=== PATIENT | female | born 1960 | race Caucasian/White ===

== ENCOUNTER → 2017-02-14 | Outpatient (CLI) | payer MEDICAID ==
[~2017-02-14] MED LIST: ACET-62 PO; ASPI81TA2 GT; CARB15DR94 EACH EAR; FERR500P12; MAGN400T6 PO; MAGN800O; TUBE5VIA
--- NOTE | 2017-02-14 19:17 | ECHOF ---
DATE OF SERVICE 02/14/[address] Makenzie Hill INDICATIONS Prechemotherapy. Baseline assessment of LV ejection fraction in a patient who is anticipating potentially cardiotoxic chemotherapy. TECHNICAL QUALITY Technically good 2D, M-mode, Doppler echocardiographic images were submitted for interpretation. FINDINGS 1. CARDIAC CHAMBERS: Left ventricle appears prominent with evidence of apical akinesis and no demonstrable clots. All other cardiac chambers are normal in size including the left atrium. Aortic root diameter is normal. 2. LEFT VENTRICLE: Left ventricular analysis reveals wall thickness is normal at 7 mm. Wall motion analysis shows apical akinesis. No demonstrable clots. The contractility of the lateral wall appears normal. Contractility of the anterior wall appears preserved. The septum, particularly the anterior septum, appears echogenic and thinned out with some dyskinesis present in the apical portion consistent with an aneurysm. No demonstrable clots that I see. The inferior septum appears to contract adequately, but the inferior wall appears markedly hypokinetic to akinetic as seen on the apical two-chamber view. LV systolic dysfunction due to ischemic cardiomyopathy of qincruxi-zo-wceiew degree. Ejection fraction is estimated at about 35%, which correlates with the measurements obtained. 3. VALVES: The aortic, mitral, and tricuspid valve structure and motion appear normal for age with normal valve excursion. 4. Doppler shows trace regurgitation involving all four valves. None of hemodynamic significance. Normal flow velocity throughout. 5. Only minimal pericardial effusion is present. 6. No evidence of intracardiac masses, thrombi, vegetations, or shunts. IMPRESSION 1. Findings of moderately severe ischemic cardiomyopathy. Ejection fraction of about 35%, with evidence of multivessel coronary artery disease and prior infarction. 2. No significant valvular dysfunction. 3. Systolic PA pressure estimated at 36 mmHg, mildly increased. 4. Central venous pressure is mildly increased. Results were called in to Dr. Hill. [facility]
== END ==
LOC: IMA 14:10
PROVIDERS: ATTEND Internal Medicine Medical Oncology
DX: C13.8 Malignant neoplasm of overlapping sites of hypopharynx (principal); C01 Malignant neoplasm of base of tongue; I25.5 Ischemic cardiomyopathy; I25.10 Atherosclerotic heart disease of native coronary artery without angina pectoris
CPT/HCPCS: 93306

== ENCOUNTER → 2017-02-28 | Outpatient (CLI) | payer MEDICAID ==
[2017-02-28 10:30] VITALS: O2SAT 100
== END ==
LOC: RC 10:35
PROVIDERS: ATTEND Internal Medicine Medical Oncology
DX: C01 Malignant neoplasm of base of tongue (principal); Z93.0 Tracheostomy status
CPT/HCPCS: 31720

== ENCOUNTER 2017-06-10 12:16 | Observation (INO) ==
[2017-06-10] MEDS: ACETAMINOPHEN 500 MG TABLET GT SCH ×2 (13:33→21:13)
[2017-06-10] MEDS: GUAIFENESIN 200mg/10ml ORAL LIQUID GT SCH ×3 (13:34→21:12)
--- NOTE | 2017-06-10 14:12 | History & Physical Report ---
<Ida Hurst - Last Filed: 06/10/17 14:07> History of Present Illness Date: 06/10/17 Chief complaint: "I'm ready for my trach to come out" HPI: "Gus Moss is a 56 year old woman with a complicated history. She is being admitted for monitoring sats while her trach is capped. If all goes well, and Dr. Wood will decannulate the trach tomorrow. In late 2015, she was diagnosed with locally advanced stage IV oropharyngeal cancer, and received chemotherapy and radiation therapy per Dr. Hill. A tracheostomy and PEG tube were placed in October 2016. After some early complications with tube feedings , including emesis and requirement of IV fluids, her symptoms improved and she was tolerating feedings. Also since this time, she fell and fractured her right hip in Dec, 2016. She underwent surgical repair, from which she has recovered well. She has occasional residual right thigh pain. She states that she very rarely has to use a walker anymore. Regarding her oropharyngeal cancer, repeat imaging/scan has indicated remission. She is due for a PET scan in about 1 month. In addition, she states she has an upcoming swallow study next week to determine whether or not they can remove the PEG tube. She denies any other symptoms such as fevers or chills, cough or congestion, abdominal pain, nausea, vomiting, difficulty breathing, weakness or dizziness, urinary issues, or leg swelling. Review of Systems - Constitutional Constitutional: Present: weight gain (few pounds). Absent: fever(s), headache(s ) - EENMT Eyes: Absent: change in vision Balance: Absent: vertigo Nose: Absent: obstruction Mouth/Throat: Present: changes in swallowing. Absent: sore throat, change in voice - Cardiovascular Cardiovascular: Absent: chest pain, dyspnea on exertion, edema Vascular: Absent: pedal edema, unilateral swelling - Respiratory Respiratory: Present: cough (occasional). Absent: dyspnea - Gastrointestinal Gastrointestinal: Present: as per HPI. Absent: abdominal pain - Musculoskeletal Musculoskeletal: Present: other (left hip thigh pain occasionally). Absent: joint swelling, limited range of motion - Neurological Neurological: Absent: confusion, dizziness, loss of vision, numbness - Psychiatric Psychiatric: Absent: abnormal sleep pattern, anxiety - Allergic/Immunologic Allergic/Immunologic: Present: other (on ASA) PFSH Coronary artery disease with past stent 1. Stage FANNIE oropharyngeal cancer extending to the base of the tongue (2016). Treated with cis-[place] and radiation therapy. Anemia. Previously diagnosed with depression and treated with Zoloft - no longer taking Surgical History: Tracheostomy, PEG, Port-A-Cath. Surgery for colonic perforation. Hysterectomy. Bilateral tubal ligation. Ear tubes. Bilateral cataracts Family History: Family history of malignancy affecting several uncles - leukemia and lung cancers. Patient denies significant illness affecting parents. - Social History Smoking status: Former smoker Substance use type: does not use Alcohol intake frequency: does not drink Housing: [facility] (hopes to be able to live at home soon.) [place] [facility] Social history: Primary care physician is Dr. Patel. Oncologist is Dr. Hill. Orthopod is Dr. Lester. Medications Home Medications Medication Instructions Recorded Confirmed Type RX: Acetaminophen 1 tab GT Q6H #60 tab 11/21/16 06/10/17 History RX: Magnesium Hydroxide [Milk of 2,400 mg GT Q12H PRN #0 01/05/17 06/10/17 History Magnesia] Carvedilol [Coreg] 1 tab GT BID 06/10/17 06/10/17 History Docusate Sodium 20 mg GT BID 06/10/17 06/10/17 History Hydrocodone/APAP 5/325 [[place] 1 - 2 tab GT Q4H PRN MDD 3000MG 06/10/17 06/10/17 History 5/325] Lisinopril [Prinivil] 2.5 mg GT DAILY 06/10/17 06/10/17 History Loperamide [Imodium] 2 tab GT PRN PRN MDD 4 TAB 06/10/17 06/10/17 History Melatonin/Pyridoxine HCl (B6) 1 tab GT HS 06/10/17 06/10/17 History [Melatonin 3 mg Tablet] Nystatin Oral Liq. [Mycostatin] 10 ml PO QID 06/10/17 06/10/17 History Ondansetron HCl [Zofran] 4 mg GT Q8H PRN 06/10/17 06/10/17 History RX: Ferrous Sulfate 325 mg GT DAILY 06/10/17 06/10/17 History RX: Magnesium Oxide 400 mg GT DAILY 07/30/17 07/30/17 History guaiFENesin [Guaifenesin] 600 mg GT QID 06/10/17 06/10/17 History Allergies Allergy/AdvReac Type Severity Reaction Status Date / Time NKDA Allergy Unknown Uncoded 06/10/17 12:59 Exam Vital Signs: Temperature 97.5 F 06/10/17 12:57 Pulse Rate 70 06/10/17 12:57 Respiratory Rate 20 06/10/17 12:57 Blood Pressure 95/63 06/10/17 12:57 Pulse Oximetry 98 06/10/17 12:57 Oxygen Delivery Method Room Air Height: 1.65 m Weight: 52 kg Body Mass Index: 19.1 - Constitutional Present: no acute distress, thin - Routine HEENT Exam Eye: Present: PERRL. Absent: conjunctival icterus ENT: Present: mucous membranes dry, oropharynx clear - Routine Neck Exam Present: supple. Absent: lymphadenopathy, tenderness - Routine Respiratory Exam Present: CTA bilaterally. Absent: dyspnea - Routine Cardiovascular Exam Present: RRR, S1, S2 - Routine Abdominal Exam Present: soft, normoactive bowel sounds, non distended, non tender Comments: PEG tube in place - Routine Extremities Exam Present: no edema, pulses intact, normal capillary refill. Absent: calf tenderness - Routine Skin Exam Present: intact, dry, warm - Routine Neurological Exam Present: alert, oriented X3, CN II-XII intact - Routine Psychiatric Exam Present: normal affect, normal thought process Assessment and Plan (1) Tracheostomy in place Current visit: Yes Status: Chronic DVT Prophylaxis: SCD's Resuscitation Status: Full Code Assessment and Plan: Assessment Tracheostomy, possibly no longer necessary. Stage IV oropharyngeal cancer, in remission, per patient's DPHernan KIDD Dysphagia with PEG tube feedings. Coronary artery disease. Anemia. Plan Admit under the medical team. Will consult Dr. Wood. Monitor pulse ox and telemetry overnight while trach is capped. If sats remain stable, trach may be decannulated Patient has an appointment with Dr. Wood tomorrow at 1400. Conversely, Dr. Wood may be able to remove it at bedside. Check screening labs, CBC, BMP, mg. Continue home medications, holding aspirin temporarily. PCP - Dr. Patel. Code status - Full code. - Time spent with patient 25 - 35 minutes Sepsis Assessment - Evaluation Sepsis screening result: No Definite Risk Hospital Course Summary Disclaimer: The visit summary below is not to be considered part of the above Progress Note. <Ingris Tamez M - Last Filed: 06/10/17 15:00> History of Present Illness Date: 06/10/17 [facility] Patient Stated Medical History Cataracts Yes: bilateral removed Dysphagia Yes: with cancer Hearing Loss Yes: tube placed in left ear Myocardial Infarction Yes Chemotherapy Yes Other Yes: radiation Exam Vital Signs: Temperature 97.5 F 06/10/17 12:57 Pulse Rate 70 06/10/17 12:57 Respiratory Rate 20 06/10/17 12:57 Blood Pressure 95/63 06/10/17 12:57 Pulse Oximetry 98 06/10/17 12:57 Oxygen Delivery Method Room Air Height: 1.65 m Weight: 52 kg Assessment and Plan Assessment and Plan: Patient was seen and examined independently. I agree with the note above as a representation of our plan. Doing very well despite her recent medical challenges. Port accessed for lab draw and any IV therapies needed. Will monitor with trach capped tonight and defer to Dr. Wood for next steps in the morning. Hospital Course Summary Disclaimer: The visit summary below is not to be considered part of the above Progress Note.
[2017-06-10] MEDS ORDERED: HYDROCODONE/APAP 5mg/325mg TABLET GT PRN (14:43)
[2017-06-10] MEDS ORDERED: ONDANSETRON 4 MG TABLET GT PRN (14:43)
[2017-06-10] MEDS: NYSTATIN 500,000 units/5 ml ORAL LIQUID PO SCH ×2 (16:35→21:02)
[2017-06-10] MEDS: DOCUSATE 100mg/10ml ORAL LIQUID GT SCH (21:02)
[2017-06-10] MEDS: CARVEDILOL 3.125 MG TABLET GT SCH (21:13)
[2017-06-10] MEDS ORDERED: MELATONIN 1 MG TABLET GT SCH (22:00)
[2017-06-11] MEDS: ACETAMINOPHEN 500 MG TABLET GT SCH ×3 (01:53→13:13)
[2017-06-11 07:53] VITALS: BP 89/63; TEMP 98.4
[2017-06-11 08:55] VITALS: BMI 19.3
[2017-06-11] MEDS ORDERED: LISINOPRIL 2.5 MG TABLET GT SCH (09:00)
[2017-06-11] MEDS ORDERED: FERROUS SULFATE 220 MG/5 ML ORAL LIQUID GT SCH (09:00)
[2017-06-11] MEDS ORDERED: MAGNESIUM OXIDE 400 MG TABLET GT SCH (09:00)
[2017-06-11 09:50] VITALS: RESP 12; O2SAT 96
[2017-06-11] MEDS: GUAIFENESIN 200mg/10ml ORAL LIQUID GT SCH ×2 (10:02→13:13)
[2017-06-11] MEDS: DOCUSATE 100mg/10ml ORAL LIQUID GT SCH (10:03)
[2017-06-11] MEDS: NYSTATIN 500,000 units/5 ml ORAL LIQUID PO SCH ×2 (10:06→13:21)
[2017-06-11] MEDS: CARVEDILOL 3.125 MG TABLET GT SCH (10:07)
--- NOTE | 2017-06-11 11:33 | Discharge Summary ---
<ArisOscarIda D - Last Filed: 06/11/17 11:30> Discharge Information Date of admission: 06/10/17 12:16 Anticipated date of discharge: 06/11/17 Attending Physician: Cassidy Kellogg MD Primary care physician: Lenny Patle DO Consults: Consulting Provider: Guanako Wood - Procedures Procedures: Tracheostomy was decannulated by Dr. Wood on 06/11/17. She tolerated this well. - Laboratory Labs: 06/10/17 15:12 06/10/17 15:12 History of Present Illness HPI: "Gus Moss is a 56 year old woman with a complicated history. She is being admitted for monitoring sats while her trach is capped. If all goes well, and Dr. Wood will decannulate the trach tomorrow. In late 2015, she was diagnosed with locally advanced stage IV oropharyngeal cancer, and received chemotherapy and radiation therapy per Dr. Hill. A tracheostomy and PEG tube were placed in October 2016. After some early complications with tube feedings , including emesis and requirement of IV fluids, her symptoms improved and she was tolerating feedings. Also since this time, she fell and fractured her right hip in Dec, 2016. She underwent surgical repair, from which she has recovered well. She has occasional residual right thigh pain. She states that she very rarely has to use a walker anymore. Regarding her oropharyngeal cancer, repeat imaging/scan has indicated remission. She is due for a PET scan in about 1 month. In addition, she states she has an upcoming swallow study next week to determine whether or not they can remove the PEG tube. She denies any other symptoms such as fevers or chills, cough or congestion, abdominal pain, nausea, vomiting, difficulty breathing, weakness or dizziness, urinary issues, or leg swelling. Objective Vital signs: Temperature 98.4 F 06/11/17 07:51 Pulse Rate 75 06/11/17 09:46 Respiratory Rate 12 06/11/17 09:46 Blood Pressure 89/63 06/11/17 07:51 Pulse Oximetry 96 06/11/17 09:46 Oxygen Delivery Method Room Air Height: 1.65 m Weight: 52.617 kg Body Mass Index: 19.3 - Constitutional Present: no acute distress, thin - Routine HEENT Exam Head: Present: normocephalic Eye: Absent: conjunctival icterus ENT: Present: mucous membranes moist, oropharynx clear Comments: tracheostomy has been discontinued and there is an occlusive gauze dressing overlying the site. There is mild erythema to her anterior neck. There is no drainage. - Routine Respiratory Exam Present: CTA bilaterally - Routine Cardiovascular Exam Present: RRR, S1, S2, murmur (systolic) - Routine Abdominal Exam Present: soft, normoactive bowel sounds, non distended, non tender, ostomy (PEG) - Routine Extremities Exam Present: no edema, pulses intact, normal capillary refill - Routine Back/Spine/Pelvis Exam Back/Spine: Present: full ROM - Routine Musculoskeletal Exam Musculoskeletal: Present: moving extremities well. Absent: limited range of motion - Routine Skin Exam Present: intact, erythema (anterior neck), dry, warm - Routine Neurological Exam Present: alert, oriented X3, CN II-XII intact, moving all extremities - Routine Psychiatric Exam Present: normal affect, normal thought process Hospital Course This is a general summary of the patient's hospital course. For more details refer to the complete medical record. Hospital course: "Gus Moss was admitted on 06/11/17 for overnight oximetry with plans for tracheostomy decannulation on 06/11/17. Oxygen saturations remained stable overnight. Her telemetry rhythm showed sinus. Dr. Wood decannulated the tracheostomy as planned on 06/11/17 without incident. She was instructed to minimize talking and to hold pressure over the site if she does talk. He wrote wound care instructions for nursing staff, and most importantly is to keep the stoma covered with an occlusive dressing [change as needed]. A f/u appointment has been set for next Sunday. HTN & CAD: Since her BP has been persistently low we added hold parameters for both Coreg and Lisinopril (Hold if SBP <110 and HR <60). Recommend f/u with Dr. Patel in this regard. Anemia: admission labs were overall stable, showing chronic stable [and improved ] normocytic anemia. Continue ferrous sulfate. Discharge Plan - Med Rec/Dispo Referrals/Follow Up: Lenny Patel DO [Family Provider] - 1 Week (F/U on asymptomatic hypotension ) Guanako oWod MD [Physician] - 1 Week (Follow up on June 19.) Additional Instructions: Hold Lisinopril if SBP <110 mmHg Hold Coreg if SBP <110 mmHg or if HR <60 Prescriptions: Continue Magnesium Hydroxide [Milk of Magnesia] 2,400 mg GT Q12H PRN #0 PRN Reason: Constipation Ondansetron HCl [Zofran] 4 mg GT Q8H PRN PRN Reason: Nausea Melatonin/Pyridoxine HCl (B6) [Melatonin 3 mg Tablet] 1 tab GT HS guaiFENesin [Guaifenesin] 600 mg GT QID Docusate Sodium 20 mg GT BID Magnesium Oxide 400 mg GT DAILY Ferrous Sulfate 325 mg GT DAILY Loperamide [Imodium] 2 tab GT PRN PRN MDD 4 TAB PRN Reason: Diarrhea Carvedilol [Coreg] 1 tab GT BID #0 Hydrocodone/APAP 5/325 [[place] 5/325] 1 - 2 tab GT Q4H PRN #15 tablet MDD 3000MG PRN Reason: Pain Lisinopril [Prinivil] 2.5 mg GT DAILY #0 Acetaminophen 1 tab GT Q6H #60 tab Aspirin 81 mg GT DAILY 30 Days Nystatin Oral Liq. [Mycostatin] 10 ml PO QID - Disposition 04 To [facility] Home/Facility <Cassidy Kellogg Jose Angel - Last Filed: 06/11/17 13:15> Discharge Information Date of admission: 06/10/17 12:16 Attending Physician: Michael Alfaro MD Primary care physician: MD Lenny Dumont DO Consults: 06/10/17 13:48 Physician Consult [CONS] Routine Consulting Provider: Guanako Wood Reason For Exam: TRACH STUDY Ordering Provider has Notified Escalator Attendant: Yes - Discharge Diagnosis Discharge Diagnosis: History stage IV oropharyngeal cancer Tracheostomy-decannulated 06/11/17 - Laboratory Labs: 06/10/17 15:12 06/10/17 15:12 Objective Vital signs: Temperature 98.4 F 06/11/17 07:51 Pulse Rate 59 L 06/11/17 11:36 Respiratory Rate 12 06/11/17 09:46 Blood Pressure 89/63 06/11/17 07:51 Pulse Oximetry 96 06/11/17 09:46 Oxygen Delivery Method Room Air Hospital Course This is a general summary of the patient's hospital course. For more details refer to the complete medical record. Hospital course: I have independently evaluated and examined this patient. I reviewed the chart, the patient's history, and the [employer]PA's documented findings as above. We discussed and formulated the assessment and plan as above with additions as below: Overnight oximetry was monitored after tracheostomy was capped to determine if Betty could be safely decannulated as planned. Oxygenation remained stable and she had no difficulty breathing per her report. She describes minor cough. She' s had no palpitations and was delighted to hear that Dr. Wood plans to remove the trach at bedside late this morning. Tracheostomy was subsequently decannulated uneventfully. The patient is alert and cooperative. Respirations are nonlabored with good airflow. Stable for return to [facility] with follow-up as noted.
[2017-06-11 11:37] VITALS: PULSE 59
--- NOTE | 2017-06-11 11:51 | Extended Care Facility Orders ---
Admission Orders Admit to:: [facility] Allergies/Adverse Reactions: Allergies NKDA Allergy (Unknown, Uncoded 06/10/17 12:59) Admitting Diagnosis: Trach Study Admitting Physician: Cassidy Kellogg MD Attending Physician: Cassidy Kellogg MD Code Status: Full Code Anticiapted Length of Stay: 30 days or less Rehab Potential: good Rehab Prognosis: good Diet: NPO Diet [DIET] Resume tube feeds May use Facility Protocol or Standing Orders: Yes May have flu vaccine: Yes Longterm Certification: I certify that SNF services are required to be given on an Inpatient basis because of the patient's need for [facility] care on a continuing basis for the condition(s) for which she received inpatient hospital services prior to her transfer to the SNF. SNF inpatient care is necessary for the following reasons Indication for Longterm: Not Applicable - Additional Information In Event of Arrest: Start CPR,call 911,send patient to the ER Resident is Aware of Diagnosis: Yes Referrals: Guanako Wood MD [Physician] - 1 Week (Follow up on June 19.) Lenny Patel DO [Family Provider] - 1 Week (F/U on asymptomatic hypotension ) Additional Orders: Keep occlusive dressing in place over trach stoma. Change as needed. See Dr. Wood's orders. Minimize talking, and when she does talk make sure she applies pressure to the stoma. Hold Lisinopril if SBP <110 mmHg and hold Coreg if SBP <110 mmHg or if HR <60 bpm. F/U with Dr. Patel in 1 week. F/U with Dr. Wood next Sunday.
== END 2017-06-11 15:33 ==
LOC: SRG
PROVIDERS: ADMIT Internal Medicine; ATTEND Internal Medicine

== ENCOUNTER 2018-05-16 07:30 | Inpatient (IN) ==
[~2018-05-16 07:30] MED LIST changes: -ACET-62 PO; -ASPI81TA2 GT; -CARB15DR94 EACH EAR; -FERR500P12; +LIDOCAINE 1% (10mg/ml) 2mL INJ PF SDV ID ONE; -MAGN400T6 PO; -MAGN800O; -TUBE5VIA
--- OUTSIDE RECORDS SUMMARY | 2018-05-16 09:43 | External Medical Summary | Summary of Care ---
:1960 Author Name Guanako Wood M.D. Address Unavailable Unavailable , Care Team Providers Name Role Phone Guanako Wood M.D. Unavailable Unavailable Edward Crawford Unavailable Unavailable Functional Status Functional Status Health Issues Name Dates Details Functional status health issues are not documented Status: Cognitive Status Health Issues Name Dates Details Cognitive status health issues are not documented Status: Problems Name Dates Details Tonsillar mass (784.2, R22.0) Status: Active Medications Name Dates Details Medication not documented Allergies and Adverse Reactions Name Dates Details Allergy history not documented Status: Procedures Procedure Dates Details Procedures not documented Immunization Name Dates Details Immunizations not documented Social History Smoking Status Name Dates Details Unknown if ever smoked Vital Signs Date Test Result Details No Known Vitals to report Results Date Description Value Details Results not documented Plan of Care Name Dates Details Planned Observations Planned Goals not documented Planned Encounters Appointment; Provider: Guanako Wood M.D. On 30-Jan-2017 12:30 Instructions Name Dates Details Instructions not documented Encounters Appointment; Guanako Wood M.D. On 29-Aug-2016 Encounter Diagnosis: Problem not documented 13:45
--- OUTSIDE RECORDS SUMMARY | 2018-05-16 09:43 | External Medical Summary | Clinical Summary ---
:1960 Author Organization [facility] Address [address] [place] [address] Care Team Providers Name Role Phone Unavailable Primary Care Provider Unavailable Source Comments Some departments are not documenting in the electronic medical record. If you do not see the information that you expected, contact Release of Information in the Health Information Management department at [phone] for further assistance in locating additional records.[facility] Allergies Active Allergy Reactions Severity Noted Date Comments Penicillins SEE COMMENTS Low 10/09/2016 Doesn't help Current Medications Prescription Sig. Disp. Refills Start Date End Date Status CALCIUM PO Take 200 mg by mouth Active twice daily. DOCOSAHEXANOIC ACID/EPA Take by mouth. Active (FISH OIL PO) niacin (VITAMIN B3) 250 Take 250 mg by mouth Active mg tablet daily. Take with food. GLUC HCL/GLUC Take by mouth. Active CARVER/CG-TKL-Z-GLUC (GLUCOSAMINE COMPLEX PO) acetaminophen (TYLENOL) Take 500 mg by mouth Active 500 mg tablet every 6 hours as needed for Pain. Max of 4,000 mg of acetaminophen in 24 hours. aspirin 325 mg tablet Take 325 mg by mouth Active daily. Take with food. Active Problems Problem Noted Date Malignant neoplasm of base of tongue (HCC) 10/09/2016 Family History Relation Name Status Comments Father Mother Alive Social History Tobacco Use Types Packs/Day Years Used Date Current Every Day Smoker Cigarettes 1 44 Smokeless Tobacco: Never Used Alcohol Use Drinks/Week oz/Week Comments Yes Sex Assigned at Date Recorded Not on file Last Filed Vital Signs Vital Sign Reading Time Taken Blood Pressure 102/67 10/09/2016 9:23 AM [employer] Pulse 91 10/09/2016 9:23 AM [employer] Temperature - - Respiratory Rate - - Oxygen Saturation - - Inhaled Oxygen Concentration - - Weight 49.4 kg (109 lb) 10/09/2016 9:23 AM [employer] Height 162.6 cm (5' 4") 10/09/2016 9:23 AM [employer] Body Mass Index 18.71 10/09/2016 9:23 AM [employer] Plan of Treatment Health Maintenance Due Date Last Done Comments HEPATITIS C SCREENING 1960 PHYSICAL (COMPREHENSIVE) EXAM 1967 PERTUSSIS VACCINE 1971 HIV SCREENING 1975 TETANUS VACCINE 1977 CERVICAL CANCER SCREENING 1990 BREAST CANCER SCREENING 2000 COLORECTAL CANCER SCREENING 2010 SHINGLES RECOMBINANT VACCINE (1 of 2) 2010 INFLUENZA VACCINE 08/12/2018
--- OUTSIDE RECORDS SUMMARY | 2018-05-16 09:43 | External Medical Summary ---
:1960 Author Organization [facility] Address [address] [place] [address] Care Team Providers Name Role Phone Nazario Norris Unavailable Unavailable PROBLEMS Type Condition ICD9-CM [id number] Onset Condition SNOMED Code Code Code Dates Status Problem Dyslipidemia 272.4 Active 018382243 Problem Chronic Z79.01 Active 087262338 anticoagulation Problem CAD 414.01 Active 55701426 Problem AICD (automatic Z95.810 Active 667148541 cardioverter/defibr illator) present Problem Atherosclerotic I25.10 Active 0936284059704 heart disease of [place] coronary artery without angina pectoris Problem Chemotherapy Z09 Active 587917011 follow-up examination Problem Dyslipidemia E78.5 Active 603117410 Problem Mixed E78.2 Active 652240902 hyperlipidemia Problem CHF (congestive I50.9 Active 72591929 heart failure) ALLERGIES No Information ENCOUNTERS Encounter Location Date Diagnosis [address] Nov, [address] [address] Sep, Cardiology[facility] [place] [address] Aug, [address] [address] [place] [facility] [facility] [address] May, [place], [place] [id number] [address] Apr, [place] [address] March, CHF (congestive heart Cardiology-[address] failure) I50.9 ; AICD [address] (automatic cardioverter/defibrillator) present Z95.810 ; Atherosclerotic heart disease of [place] coronary artery without angina pectoris I25.10 ; Mixed hyperlipidemia E78.2 ; Chemotherapy follow-up examination Z09 and Chronic anticoagulation Z79.[address] [place] March, CHF (congestive heart Cardiology-[address] failure) I50.9 and [address] Atherosclerotic heart disease of [place] coronary artery without angina pectoris I25.[address] [place] [address] [place] [address] [facility] [place] Feb, AICD (automatic Cardiology-[address] cardioverter/defibrillator) [address] present Z95.810 and CHF (congestive heart failure) I50.[address] [place] [address] [place] [address] [facility] [place] 30 Jan, 2018 AICD (automatic Cardiology-[address] cardioverter/defibrillator) [address] present Z95.810 and CHF (congestive heart failure) I50.9 [place] [address] [place] [address] [facility] [place] 15 Sep, 2017 Cardiology-[address] [address] [place] [address] 15 Sep, 2017 CHF ([place] [address] failure) I50.9 ; AICD (automatic cardioverter/defibrillator) present Z95.810 ; Atherosclerotic heart disease of [place] coronary artery without angina pectoris I25.10 ; Mixed hyperlipidemia E78.2 ; Chemotherapy follow-up examination Z09 and Chronic anticoagulation Z79.01 [place] [address] [place] [address] [facility] [place] 14 Sep, 2017 [place] [facility]-[address] [address] 30 Aug, 2017 AICD (automatic [address] cardioverter/defibrillator) [address] present Z95.810 and CHF (congestive heart failure) I50.9 [place] [address] [place] [address] [facility] [place] 19 Jul, 2017 CHF (congestive heart Cardiology-[address] failure) I50.9 ; AICD [address] (automatic cardioverter/defibrillator) present Z95.810 ; Atherosclerotic heart disease of [place] coronary artery without angina pectoris I25.10 ; Mixed hyperlipidemia E78.2 ; Chemotherapy follow-up examination Z09 and Chronic anticoagulation Z79.01 [place] [address] Jul, CHF ([place] [address] failure) I50.9 ; AICD (automatic cardioverter/defibrillator) present Z95.810 ; Atherosclerotic heart disease of [place] coronary artery without angina pectoris I25.10 ; Mixed hyperlipidemia E78.2 ; Chemotherapy follow-up examination Z09 and Chronic anticoagulation Z79.01 [place] [address] [place] Jul, Cardiology[address] [place] [address] [place] [address] [place] Jul, [facility] [address] [place] [address] [place] [address] [place] Jul, [facility] [address] [place] [address] [place] [address] [place] Jun, [facility] [address] [place] [address] [place] [address] [place] Jun, Cardiology[address] [place] [address] [place] [address] [place] Jun, Cardiology[address] [place] [address] [place] [address] [facility] [address] [place] Jun, CHF (congestive heart Cardiology-[address] failure) I50.9 ; [address] Atherosclerotic heart disease of [place] coronary artery without angina pectoris I25.10 ; Mixed hyperlipidemia E78.2 ; Chemotherapy follow-up examination Z09 and Chronic anticoagulation Z79.01 [place] [address] [facility] [address] [place] Jun, CHF (congestive heart Cardiology-[address] failure) I50.9 [address] [place] [address] [place] [address] [facility] [place] March, CHF (congestive heart Cardiology-[address] failure) I50.9 ; [address] Atherosclerotic heart disease of [place] coronary artery without angina pectoris I25.10 ; Mixed hyperlipidemia E78.2 ; Chemotherapy follow-up examination Z09 and Chronic anticoagulation Z79.01 [place] [address] [facility] [address] [place] Feb, CHF (congestive heart Cardiology-[address] failure) I50.9 ; [address] Atherosclerotic heart disease of [place] coronary artery without angina pectoris I25.10 ; Mixed hyperlipidemia E78.2 ; Chemotherapy follow-up examination Z09 and Chronic anticoagulation Z79.01 [place] [address] [place] Feb, [address] [address] [place] [address] [place] March, [address] [address] [place] [address] [place] 14 Nov, [address] [address] [place] [address] [place] Sep, [address] [address] [place] [address] [place] Aug, CAD 414.01 and Dyslipidemia [address] 272.4 [address] [place] [address] [place] Aug, CAD 414.01 and Dyslipidemia [address] 272.4 [address] [place] [address] [place] Aug, CAD 414.01 and Dyslipidemia [address] 272.4 [address] [place] [address] [place] Aug, [address] [address] IMMUNIZATIONS No Known Immunizations SOCIAL HISTORY Never Assessed REASON FOR VISIT SURG PLAN OF CARE VITAL SIGNS MEDICATIONS Unknown Medications RESULTS No Results PROCEDURES No Known procedures INSTRUCTIONS MEDICATIONS ADMINISTERED No Known Medications MEDICAL (GENERAL) HISTORY Type Description Date Medical History Coronary Artery Disease (CAD) with prior infarct and LAD stenting Medical History Dyslipidemia Medical History Anemia Medical History Depression Medical History malignant neoplasm of oropharynx Medical History 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 Surgical History LAD stenting Surgical History Hysterectomy Surgical History Bowel surgery Surgical History tracheostomy Surgical History Gastrectomy Surgical History Colonoscopy Hospitalization History AMI, catheterization 2007
--- OUTSIDE RECORDS SUMMARY | 2018-05-16 09:43 | External Medical Summary | Summary of Care ---
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 On 13-Feb-2017 09:30 Instructions Name Dates Details Instructions not documented Encounters Appointment; Mecca Baird M.A.|C.C.C.-A On 16-Jan-2017 Encounter Diagnosis: Problem not documented 14:00 Appointment; Guanako Wood M.D. On 16-Jan-2017 Encounter Diagnosis: Problem not documented 13:30 Appointment; Guanako Wood M.D. On 29-Aug-2016 Encounter Diagnosis: Problem not documented 13:45"
--- OUTSIDE RECORDS SUMMARY | 2018-05-16 09:43 | External Medical Summary | Summary of Care ---
[...] Details Planned Observations Planned Goals not documented Instructions Name Dates Details Instructions not documented Encounters Appointment; Guanako Wood M.D. On 29-Aug-2016 Encounter Diagnosis: Problem not documented 13:45
--- OUTSIDE RECORDS SUMMARY | 2018-05-16 09:43 | External Medical Summary ---
:1960 Author Organization [facility] Address [address] [place] [address] Care Team Providers Name Role Phone Nazario Norris Unavailable Unavailable PROBLEMS Type Condition ICD9-CM [id number] Onset Condition SNOMED Code Code Code Dates Status Problem Dyslipidemia 272.4 Active 359601040 Problem Chronic Z79.01 Active 049102016 anticoagulation Problem CAD 414.01 Active 38612685 Problem AICD (automatic Z95.810 Active 463110319 cardioverter/defibr illator) present Problem Atherosclerotic I25.10 Active 2088666807931 heart disease of [place] coronary artery without angina pectoris Problem Chemotherapy Z09 Active 160232242 follow-up examination Problem Dyslipidemia E78.5 Active 965809044 Problem Mixed E78.2 Active 976759575 hyperlipidemia Problem CHF (congestive I50.9 Active 66928201 heart failure) ALLERGIES Substance Reaction Event Type Date Status Penicillin Unknown Drug Allergy March, Active ENCOUNTERS Encounter Location Date Diagnosis [facility] [address] [place] [address] Nov, [address] [address] Sep, Cardiology-[facility] [address] [place] [address] [facility] [address] [place] [address] Aug, [address] [address] [facility] [address] [place] [address] May, [address] [address] [facility] [address] [place] [address] March, CHF ([facility] [address] [place] [address] failure) I50.9 ; AICD [address] (automatic cardioverter/defibrillator) present Z95.810 ; Atherosclerotic heart disease of [place] coronary artery without angina pectoris I25.10 ; Mixed hyperlipidemia E78.2 ; Chemotherapy follow-up examination Z09 and Chronic anticoagulation Z79.01 [facility] [address] [place] [address] March, CHF ([facility] [address] [place] [address] failure) I50.9 and [address] Atherosclerotic heart disease of [place] coronary artery without angina pectoris I25.10 [facility] [address] [place] 02 Feb, 2018 A[facility] [address] [place], [place] cardioverter/defibrillator) [address] present Z95.810 and CHF (congestive heart failure) I50.9 [facility] [address] [place] 30 Jan, 2018 A[facility] [address] [place], [place] cardioverter/defibrillator) [address] present Z95.810 and CHF (congestive heart failure) I50.9 [facility] [address] [place] [address] [facility] [place] 15 Sep, 2017 [facility] [address] [place] [address] [facility] [address] 15 Sep, 2017 CHF (congestive heart [facility]iology-[place] failure) I50.9 ; AICD [address] (automatic cardioverter/defibrillator) present Z95.810 ; Atherosclerotic heart disease of [place] coronary artery without angina pectoris I25.10 ; Mixed hyperlipidemia E78.2 ; Chemotherapy follow-up examination Z09 and Chronic anticoagulation Z79.01 [place] [address] [facility] [address] [place] 14 Sep, 2017 [facility] [address] [place] [address] [facility] [address] [place] [address] [place] 30 Aug, 2017 [facility] [address] [place], [place] cardioverter/defibrillator) [address] present Z95.810 and CHF (congestive heart failure) I50.9 [facility] [address] [place] [address] [facility] [place] 19 Jul, 2017 CHF ([facility] [address] [place], [place] failure) I50.9 ; AICD [address] (automatic cardioverter/defibrillator) present Z95.810 ; Atherosclerotic heart disease of [place] coronary artery without angina pectoris I25.10 ; Mixed hyperlipidemia E78.2 ; Chemotherapy follow-up examination Z09 and Chronic anticoagulation Z79.[address] [facility] [address] 13 Jul, 2017 CHF (congestive heart Cardiology-[place] failure) I50.9 ; AICD [address] (automatic cardioverter/defibrillator) present Z95.810 ; Atherosclerotic heart disease of [place] coronary artery without angina pectoris I25.10 ; Mixed hyperlipidemia E78.2 ; Chemotherapy follow-up examination Z09 and Chronic anticoagulation Z79.01 [facility] [address] [place] Jul, [facility] [address] [place] [address] [facility] [address] [place] Jul, [facility] [address] [place] [address] [facility] [address] [place] Jul, [facility] [address] [place] [address] [facility] [address] [place] Jun, [facility] [address] [place] [address] [facility] [address] [place] Jun, [facility] [address] [place] [address] [facility] [address] [place] Jun, [facility] [address] [place] [address] [facility] [address] [place] Jun, CHF ([facility] [address] [place], [place] failure) I50.9 ; [address] Atherosclerotic heart disease of [place] coronary artery without angina pectoris I25.10 ; Mixed hyperlipidemia E78.2 ; Chemotherapy follow-up examination Z09 and Chronic anticoagulation Z79.01 [facility] [address] [place] Jun, CHF ([facility] [address] [place], [place] failure) I50.9 [address] [facility] [address] [place] March, CHF ([facility] [address] [place], [place] failure) I50.9 ; [address] Atherosclerotic heart disease of [place] coronary artery without angina pectoris I25.10 ; Mixed hyperlipidemia E78.2 ; Chemotherapy follow-up examination Z09 and Chronic anticoagulation Z79.01 [facility] [address] [place] Feb, CHF ([facility] [address] [place], [place] failure) I50.9 ; [address] Atherosclerotic heart disease of [place] coronary artery without angina pectoris I25.10 ; Mixed hyperlipidemia E78.2 ; Chemotherapy follow-up examination Z09 and Chronic anticoagulation Z79.01 [facility] [address] [place] Feb, [facility] [address] [place] [address] [facility] [address] [place] March, [facility] [address] [place] [address] [facility] [address] [facility] Nov, [facility] [address] [place] [address] [facility] [address] [facility] Sep, LLC [address] [place] [address] [facility] [address] [facility] Aug, CAD 414.01 and Dyslipidemia [facility] [address] [place], [place] 272.4 [address] [facility] [address] [facility] Aug, CAD 414.01 and [facility] [address] [place], [place] 272.4 [address] [facility] [address] [facility] Aug, CAD 414.01 and [facility] [address] [place], [place] 272.4 [address] [facility] [address] [facility] Aug, [facility] [address] [place] [address] IMMUNIZATIONS No Known Immunizations SOCIAL HISTORY Never Assessed REASON FOR VISIT ^S ECHO F/U 6MOS PLAN OF CARE Activity Details Follow Up 6 Months in [place] Reason: VITAL SIGNS Height 65 in 2018-04-02 Weight 112 lbs 2018-04-02 BMI 18.64 kg/m2 2018-04-02 Oximetry 95 % 2018-04-02 Heart Rate 82 /min 2018-04-02 Blood pressure systolic 112 mm Hg 2018-04-02 Blood pressure diastolic 78 mm Hg 2018-04-02 MEDICATIONS Medication Instructions Dosage Frequency Start End Duration Status Date Date Levothyroxine 25 Orally Once a 1 tablet 24h Active MCG day on an empty stomach in the morning Coreg 3.125 MG Orally bid one 12h 33 days Active Lisinopril 2.5 MG Orally Once a 1 tablet 24h 30 day(s) Active day Calcium 500 MG Orally qd 1 tablet 24h Active with meals Aspirin EC 81 MG Orally Once a 1 tablet 24h 30 day(s) Active day multivitamin po qd 24h Active Melatonin 3 MG Orally Once a 1 tablet 24h Active day at bedtime as needed with food Risedronate Orally once a 1 tablet Active Sodium 35 MG week Glucosamine Orally qd 1 tab 24h Active Chondroitin - Tylenol 325 MG Orally bid 12h Active RESULTS No Results PROCEDURES Procedure Date Ordered Result Body Site Ofc Interrogation ICD, Staff April 02, 2018 INSTRUCTIONS MEDICATIONS ADMINISTERED No Known Medications MEDICAL (GENERAL) HISTORY Type Description Date Medical History Coronary Artery Disease (CAD) with prior infarct and LAD stenting Medical History Dyslipidemia Medical History Anemia Medical History Depression Medical History malignant neoplasm of oropharynx Medical History 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 Surgical History LAD stenting Surgical History Hysterectomy Surgical History Bowel surgery Surgical History tracheostomy Surgical History Gastrectomy Surgical History Colonoscopy Hospitalization History AMI, catheterization 2007
--- OUTSIDE RECORDS SUMMARY | 2018-05-16 09:43 | External Medical Summary | Referral Summary ---
:1960 Author Organization [facility] Address [address] [place] [address] [place] [address] Care Team Providers Name Role Phone No PCP, States Primary Care Physician Encounter VC Date(s): 03/31/15 - 03/31/15 [facility] [address] [place] [address] [place] [address] [place] Discharge Diagnosis: Tendinitis Discharge Disposition: 01-Home or Self Care Attending Physician: Bert Munoz MD Admitting Physician: Bert Munoz MD Vital Signs Most recent to oldest [Reference Range]: 1 Temperature Tympanic [36.6-38.1 degC] 36.1 degC *LOW* (03/31/15 2:50 PM) Peripheral Pulse Rate [60-100 bpm] 84 bpm (03/31/15 2:50 PM) Respiratory Rate [14-20 br/min] 16 br/min (03/31/15 2:50 PM) Blood Pressure [90-140/60-90 mmHg] 116/72 mmHg (03/31/15 2:50 PM) SpO2 99 % (03/31/15 2:50 PM) Problem List Condition Effective Dates Status Health Status Informant Tobacco user(Confirmed) Active patient Allergies, Adverse Reactions, Alerts No Known Medication Allergies Medications aspirin 325 mg, Oral, BID, 0 Refill(s) Start Date: 03/31/15 Status: OrderedCaltrate 600 + D 2 tabs, Oral, Daily, 0 Refill(s) Start Date: 03/31/15 Status: OrderedFish Oil 1000 mg oral capsule 1,000 mg 1 caps, Oral, Daily, 0 Refill(s) Start Date: 03/31/15 Status: Orderedibuprofen 400 mg, Oral, Daily, 0 Refill(s) Start Date: 03/31/15 Status: Orderedmultivitamin 1 caps, Oral, Daily, 0 Refill(s) Start Date: 03/31/15 Status: Ordered Results No data available for this section Immunizations No data available for this section Procedures Procedure Date Related Diagnosis Body Site Cataract surgery 11/12/11 Stent placement1 11/12/08 Colon perforation2 11/12/06 Hysterectomy 11/12/06 1heart [id number] post hysterectomy Social History Social History Type Response Smoking Status Current every day smoker; Type: Cigarettes; Tobacco use per day : Pack; Number of years: 40 Assessment and Plan Extracted from: Title: Ambulatory Patient Education Author: Bert Munoz MD Date: Family Medicine Tendinitis Tendinitis is swelling and inflammation of the tendons. Tendons are band-like tissues that connect muscle to bone. Tendinitis commonly occurs in the: Shoulders (rotator cuff). Heels (Achilles tendon). Elbows (triceps tendon). CAUSES Tendinitis is usually caused by overusing the tendon, muscles, and joints involved. When the tissue surrounding a tendon (synovium ) becomes inflamed, it is called tenosynovitis. Tendinitis commonly dev elops in people whose jobs require repetitive motions. SYMPTOMS Pain. Tenderness. Mild swelling. DIAGNOSIS Tendinitis is usually diagnosed by physical exam. Your caregiver may also order X-rays or other imaging tests. TREATMENT Your caregiver may recommend certain medicines or exercises for your treatment. HOME CARE INSTRUCTIONS Use a sling or splint for as long as directed by your caregiver until the pain decreases. Put ice on the injured area. Put ice in a plastic bag. Place a towel between your skin and the bag. Leave the ice on for 15-20 minutes, 03-04 times a day. Avoid using the limb while the tendon is painful. Perform gentle range of motion exercises only as directed by your caregiver. Stop exercises if pain or discomfort increase, unless directed otherwise by your caregiver. Only take [id number]-hlkcyud or prescription medicines for pain, discomfort , or fever as directed by your caregiver. SEEK MEDICAL CARE IF: Your pain and swelling increase. You develop new, unexplained symptoms, especially increased numbness in the hands. MAKE SURE YOU: Understand these instructions. Will watch your condition. Will get help right away if you are not doing well or get worse. Document Released: 10/26/2001 Document Revised: 01/20/2013 Document Reviewed: 01/15/2012 ExitCare Patient Information 2014 [employer]. Follow Up With: Where: When: Pt States No PCP [address] [place] [place] [phone] Business (1) Within 3 to 5 days, only if needed Comments: Extracted from: Title: Office Visit Note Author: Bert Munoz MD Date: 03/31/15 Assessment/Plan Tendinitis The thumb spica splint was placed. She was advised to use ibuprofen 200 mg tablets 2-3 pills to 3 times a day with food. She was advised to follow a light duty schedule with activitie s involving the left hand and wrist over the next one to 2 weeks. She will return for recheck as needed. Ordered: Office Visit Level 3 New [id number]
--- OUTSIDE RECORDS SUMMARY | 2018-05-16 09:43 | External Medical Summary | Referral Summary ---
:1960 Author Organization [facility] Address [address] [place] [address] Care Team Providers Name Role Phone Kiara Foote Primary Care Physician Encounter VC Date(s): 12/31/16 - 01/04/17 [facility] [address] [place] [address] [phone] Discharge Disposition: 03-Alf Facility Attending Physician: Danis Lester MD Admitting Physician: Danis Lester MD Vital Signs Most recent to oldest [Reference Range]: 1 Temperature Axillary [35.2-36.7 degC] 37.2 degC *HI* (01/02/17 5:37 PM) Temperature Oral [35.8-37.3 degC] 37.1 degC (01/04/17 8:00 AM) Temperature Temporal Artery [36.3-37.8 degC] 36.1 degC *LOW* (01/01/17 2:15 PM) Peripheral Pulse Rate [60-100 bpm] 69 bpm (01/04/17 8:00 AM) Heart Rate Monitored [60-100 bpm] 97 bpm (01/04/17 3:00 AM) Respiratory Rate [14-20 br/min] 16 br/min (01/04/17 8:00 AM) Blood Pressure [90-140/60-90 mmHg] 86/53 mmHg *LOW* (01/04/17 8:00 AM) Mean Arterial Pressure, Cuff 83 mmHg (01/01/17 2:15 PM) SpO2 96 % (01/04/17 12:23 PM) Remote Telemetry Ongoing (01/04/17 2:07 PM) Problem List Condition Effective Dates Status Health Status Informant Acute pain(Confirmed) Active Alteration in nutrition(Confirmed)1 Active Coronary artery disease with history Active of myocardial infarction without history of CABG(Confirmed) At risk for activity Active intolerance(Confirmed)2 At risk for infection(Confirmed)3 Active At risk of pressure sore(Confirmed) Active Ineffective airway Active clearance(Confirmed)4 Tobacco user(Confirmed) Active patient 1Problem added automatically by system based on initiation of Alteration in Nutrition Plan of [id number] added automatically by system based on initiation of At Risk for Activity Intolerance Plan of [id number] added automatically by system based on initiation of At Risk for Infection in Nutrition Planof [id number] added automatically by system based on initiation of Ineffective Airway Clearance Plan of Care Allergies, Adverse Reactions, Alerts No Known Allergies Medications acetaminophen 500 mg, G-Tube, q6hr, Pain Mild (1-3), not to exceed 3000 mg/day;, 0 Refill(s) Start Date: 10/26/16 Status: Orderedaspirin 81 mg, G-Tube, Daily, 0 Refill(s) Start Date: 03/31/15 Status: Ordereddocusate sodium 10 mg/mL oral liquid 100 mg 10 mL, PEG-Tube, BID, 0 Refill(s) Start Date: 01/03/17 Status: Orderedferrous sulfate 325 mg (65 mg elemental iron) oral delayed release tablet 325 mg 1 tabs, PEG-Tube, Daily, 0 Refill(s) Start Date: 01/03/17 Status: Orderedmagnesium oxide 400 mg (241.3 mg elemental magnesium) oral tablet 400 mg 1 tabs, PEG-Tube, BID, 0 Refill(s) Start Date: 01/03/17 Status: OrderedMilk of Magnesia 2,400 mg 30 mL, PEG-Tube, q12hr, Constipation, 0 Refill(s) Start Date: 01/03/17 Status: OrderedNorco 5 mg-325 mg oral tablet 1-2 tabs, PEG-Tube, q4hr, Pain, not to exceed 8 tablets/24 hours; Use caution with tylenol not to exceed 3000 mg/24 hours, # 30 tabs, 0 Refill(s) Start Date: 01/04/17 Stop Date: 01/31/17 Status: OrderedXarelto 10 mg oral tablet 10 mg 1 tabs, PEG-Tube, Daily, crush and dissolve in 50 ml water prior to administering down PEG tube, 0 Refill(s) Start Date: 01/03/17 Status: Ordered Results Hematology Most recent to oldest [Reference Range]: 1 WBC [4.8-10.8 10*3/uL] 5.6 10*3/uL (01/04/17 8:45 AM) RBC [4.00-5.20] 2.53 *LOW* (01/04/17 8:45 AM) Hgb [12.0-16.0 gm/dL] 7.4 gm/dL *LOW* (01/04/17 8:45 AM) Hct [37.0-47.0 %] 22.7 % *LOW* (01/04/17 8:45 AM) MCV [82.0-99.0 fL] 89.7 fL (01/04/17 8:45 AM) MCH [27.0-32.0 pg] 29.2 pg (01/04/17 8:45 AM) MCHC [32.0-36.0 gm/dL] 32.6 gm/dL (01/04/17 8:45 AM) RDW [11.5-14.5 %] 17.8 % *HI* (01/04/17 8:45 AM) Platelet [150-400 10*3/uL] 216 10*3/uL (01/04/17 8:45 AM) MPV [9.4-12.4 fL] 9.8 fL (01/04/17 8:45 AM) Immature Granulocytes [0.0-1.0 %] 0.6 % (12/31/16 5:03 AM) Neutrophils [51-75 %] 84 % *HI* (12/31/16 5:03 AM) Lymphocytes [20-46 %] 6 % *LOW* (12/31/16 5:03 AM) Monocytes [4-11 %] 9 % (12/31/16 5:03 AM) Eosinophils [0-4 %] 0 % (12/31/16 5:03 AM) Basophils [0-2 %] 0 % (12/31/16 5:03 AM) Neutro Absolute [1.90-7.00] 8.58 *HI* (12/31/16 5:03 AM) Lymph Absolute [0.80-3.30] 0.58 *LOW* (12/31/16 5:03 AM) [place] Absolute [0.30-1.00] 0.93 (12/31/16 5:03 AM) Eos Absolute [0.00-0.50] 0.02 (12/31/16 5:03 AM) Baso Absolute [0.00-0.20] 0.03 (12/31/16 5:03 AM) Nucleated RBC Automated [0 /100 WBC] 0.0 /100 WBC (12/31/16 5:03 AM) Chemistry Most recent to oldest [Reference Range]: 1 Sodium Lvl [136-144 mEq/L] 133 mEq/L *LOW* (01/04/17 8:45 AM) Potassium Lvl [3.6-5.1 mEq/L] 3.6 mEq/L (01/04/17 8:45 AM) Chloride [99-109 mEq/L] 99 mEq/L (01/04/17 8:45 AM) CO2 [22-32 mEq/L] 29 mEq/L (01/04/17 8:45 AM) AGAP [3-20] 5 (01/04/17 8:45 AM) BUN [4-20 mg/dL] 11 mg/dL (01/04/17 8:45 AM) Glucose Lvl [70-100 mg/dL] 134 mg/dL *HI* (01/04/17 8:45 AM) Creatinine Lvl [0.44-1.03 mg/dL] 0.27 mg/dL *LOW* (01/04/17 8:45 AM) eGFR [>60] >60 1 (01/04/17 8:45 AM) Calcium Lvl [8.6-10.0 mg/dL] 8.0 mg/dL *LOW* (01/04/17 8:45 AM) Iron [50-170 mcg/dL] 11 mcg/dL *LOW* (01/01/17 5:14 AM) TIBC [286-569 mcg/dL] 226 mcg/dL *LOW* (01/01/17 5:14 AM) Iron Sat [11-46 %] 5 % *LOW* (01/01/17 5:14 AM) Transferrin [192-382 mg/dL] 152 mg/dL *LOW* (01/01/17 5:14 AM) Ferritin Lvl [11-307 ng/mL] 135 ng/mL (01/01/17 5:14 AM) Magnesium Lvl [1.8-2.5 mg/dL] 1.7 mg/dL *LOW* (01/04/17 8:45 AM) Total CK [38-234 U/L] 18 U/L *LOW* (01/01/17 5:14 AM) Troponin [<0.06 ng/mL] <0.05 ng/mL (12/31/16 5:03 AM) Blood Glucose, Capillary [70-100 mg/dL] 109 mg/dL *HI* (01/01/17 10:53 AM) 1Result Comment: Multiply eGFR results by 1.21 for race.Urinalysis Most recent to oldest [Reference Range]: 1 UA Color Yellow (12/31/16 11:41 AM) UA Appear Cloudy *ABN* (12/31/16 11:41 AM) UA pH [5.0-8.0] 8.0 (12/31/16 11:41 AM) UA Leuk Est [Negative] Negative (12/31/16 11:41 AM) UA Nitrite [Negative] Negative (12/31/16 11:41 AM) UA Protein [Negative] Negative (12/31/16 11:41 AM) UA Glucose [Negative] Negative (12/31/16 11:41 AM) UA Ketones [Negative] Negative (12/31/16 11:41 AM) UA Urobilinogen [<1.0] Negative (12/31/16 11:41 AM) UA Bili [Negative] Negative (12/31/16 11:41 AM) UA Blood [Negative] Negative (12/31/16 11:41 AM) UA Spec Grav [1.003-1.030] 1.010 (12/31/16 11:41 AM) Type Catheter (12/31/16 11:41 AM) Blood Bank Results Most recent to oldest [Reference Range]: 1 ABO/Rh A POS (01/01/17 12:50 PM) Antibody Screen Tube NEG (01/01/17 12:50 PM) Immunizations Not Given Vaccine Date Status Refusal Reason influenza virus vaccine, inactivated 11/01/16 Not Given Patient Refuses Procedures Procedure Date Related Diagnosis Body Site Open Reduction Internal Fixation Hip (Right)1 01/01/17 Esophagogastroduodenoscopy with Peg Placement2 10/27/16 Insertion Implantable Venous Access Port3 10/27/16 Cataract surgery 11/12/11 Stent placement4 11/12/08 Colon perforation5 11/12/06 Hysterectomy 11/12/06 Heel spur6 Oophorectomy of remaining ovary7 Tooth extraction8 Tubal ligation 1auto-populated from documented surgical equp8kxrk-xnsiwgtmq from documented surgical yuxc8ivoi-xvmsltete from documented surgical kfzg4xjucz lyjxix9ovunldse post [id number] NICKED AND [id number] - GETTING READY FOR RADIATION [place] Social History Social History Type Response Smoking Status Current every day smoker; Type: Cigarettes; Tobacco use per day : Pack; Number of years: 40 Assessment and Plan No data available for this section
--- OUTSIDE RECORDS SUMMARY | 2018-05-16 09:43 | External Medical Summary | Referral Summary ---
:1960 Author Organization [facility] Address [address] [place] [address] Care Team Providers Name Role Phone Kiara Foote Primary Care Physician Encounter VC Date(s): 06/23/17 - 06/23/17 [facility] [address] [place] [address] Discharge Diagnosis: Encounter for G- tube placement Discharge Disposition: 01-Home or Self Care Attending Physician: Alan Catherine MD Admitting Physician: Alan Catherine MD Vital Signs Most recent to oldest [Reference Range]: 1 Temperature Oral [35.8-37.3 degC] 36.3 degC (06/23/17 3:14 PM) Peripheral Pulse Rate [60-100 bpm] 59 bpm *LOW* (06/23/17 5:27 PM) Respiratory Rate [14-20 br/min] 16 br/min (06/23/17 5:27 PM) Blood Pressure [90-140/60-90 mmHg] 18/77 mmHg *LOW* (06/23/17 5:27 PM) SpO2 98 % (06/23/17 5:27 PM) Problem List Condition Effective Dates Status [...] initiation of Alteration in Nutrition Plan of [id number] added automatically by system based on initiation of At Risk for Activity Intolerance Plan of [id number] added automatically by system based on initiation of At Risk for Infection in Nutrition Planof Lopy7Nlwalju added automatically by system based on initiation [...] Constipation, 0 Refill(s) Start Date: 01/03/17 Status: OrderedXarelto 10 mg oral tablet 10 mg 1 tabs, PEG-Tube, Daily, crush and dissolve in 50 ml water prior to administering down PEG tube, 0 Refill(s) Start Date: 01/03/17 Status: Ordered Immunizations Not Given Vaccine Date Status Refusal [...] extraction8 Tubal ligation 1auto-populated from documented surgical mpwc6jzti-ibrbijwow from documented surgical jlro9xsts-odlkcmmhx from documented surgical pegx9xlvyi vmhltg1suefhdgr post [id number] NICKED AND [id number] - GETTING READY FOR RADIATION [place] Social History Social History Type Response Smoking Status Current every day smoker; Type: Cigarettes; Tobacco use per day : Pack; Number of years: 40;
[2018-05-16] MEDS ORDERED: ONDANSETRON 4 MG/2 ML INJECTION IVP ONE (09:44)
[2018-05-16] MEDS ORDERED: LIDOCAINE 1% (10mg/ml) 2mL INJ PF SDV ID ONE (09:44)
[2018-05-16] MEDS ORDERED: DEXAMETHASONE 4 MG/ML INJECTION IVP ONE (09:44)
[2018-05-16] MEDS ORDERED: SALINE FLUSH 10ml SYRINGE IV PRN (09:44)
[2018-05-16] MEDS ORDERED: EPINEPHrine PF 0.25 MG, BUPIVACAINE 0.25% PF 30 ML, KETOROLAC INJ 60 MG in NS 30 ML OPSITE ONE (09:44)
[2018-05-16] MEDS ORDERED: METOCLOPRAMIDE 10mg/2ml INJECTION IVP ONE (09:44)
[2018-05-16] MEDS ORDERED: TRANEXAMIC ACID 3,000 MG in NS 45 ML TOP ONE (09:44)
[2018-05-16] MEDS ORDERED: FAMOTIDINE PB 20 MG/50 ML BAG IV ONE (09:44)
[2018-05-16] MEDS ORDERED: ACETAMINOPHEN 500 MG TABLET PO ONE (09:44)
--- OUTSIDE RECORDS SUMMARY | 2018-05-16 09:44 | External Medical Summary ---
:1960 Author Organization [employer] Care Team Providers Name Role Phone Kiara Foote Provider Role Unavailable Allergies No Known Allergies Problems No Known Problems Medications Medication Code System Code Instructions Start End Date Status Dosage Date Calcium NDC 0 Oral 1 tab Glucosamine NDC 67755-35 500 MG Orally 1 capsule 17-12 Once a day with a meal ibuprofen NDC 0 Oral 1 tab Fish Oil NDC 49712-75 500 MG Orally 1 capsule 04-13 Twice a day Aspirin NDC 19406-79 325 MG Orally 1 tablet 16-78 Once a day Benadryl NDC 31080-35 25 MG Orally 1 capsule 00-24 every 6 hrs as needed Centrum Cardio NDC 88281-09 Orally not defined 29-20 Results No Known Results Summary Purpose e[employer] Submission
--- OUTSIDE RECORDS SUMMARY | 2018-05-16 09:44 | External Medical Summary | Summary of Care ---
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 Refills: 0 Start : 13-Feb-2017 Active Ferrous Sulfate 325 (65 Fe) MG Oral Tablet TAKE 1 TABLET DAILY DIRECTED. Refills: 0 Start : 13-Feb-2017 Active Xarelto 10 MG Oral Tablet 1 tablet daily Refills: 0 Start : 13-Feb-2017 Active Magnesium Oxide 400 MG Oral Tablet TAKE 1 TABLET DAILY. Refills: 0 Start : 13-Feb-2017 Active Docu 50 MG/5ML Oral Liquid TAKE DIRECTED. Refills: 0 Start : 13-Feb-2017 Active Melatonin 3 MG Oral Capsule TAKE 1 CAPSULE AT BEDTIME NEEDED. Refills: 0 Start : 13-Feb-2017 Active Milk of Magnesia Concentrate 2400 MG/10ML Oral Suspension Refills: 0 Start : 13-Feb-2017 Active [place] 5-325 MG Oral Tablet TAKE 1 TO 2 TABLETS EVERY 4 TO 6 HOURS NEEDED. Refills: 0 Start : 13-Feb-2017 Active Tylenol Extra Strength 500 MG Oral Tablet TAKE 1 TABLET EVERY 4 TO 6 HOURS NEEDED. Refills: 0 Start : 13-Feb-2017 Active GuaiFENesin 100 MG/5ML SYRP 30ML FOUR TIMES A DAY Refills: 0 Start : 13-Feb-2017 Active Levothyroxine Sodium 25 MCG Oral Tablet Refills: 0 Start : 24-Sep-2017 Active Risedronate Sodium 35 MG Oral Tablet Refills: 0 Guanako Wood M.D. Start : 01-Apr-2018 Active Tablet Allergies and Adverse Reactions Name Dates Details Penicillins (Allergy) Status: Active Past Medical History Name Dates Details History of Tracheostomy dependent (V44.0, Z93.0) Status: Resolved Procedures Procedure Dates Details History of Hysterectomy Completed History of Tubal Ligation Completed History of Hip Replacement Completed Immunization Name Dates Details Immunizations not documented Family History Father Name Dates Details Family history of malignant neoplasm (V16.9, Z80.9) Status: Active Social History Name Dates Details - Status: Smoking Status Name Dates Details Former smoker Vital Signs Date Test Result Details [id number] Weight 110 lb Status: Body Mass Index Calculated 20.12 kg/m2 Status: Body Surface Area Calculated 1.48 m2 Status: Temperature 98 f Status: Results Date Description Value Details Results not documented Plan of Care Name Dates Details Planned Observations Planned Goals not documented Planned Encounters Appointment; Guanako Wood M.D. On: 08-Jul-2018 12:45 Instructions Name Dates Details Instructions not documented Encounters Appointment; Guanako Wood M.D. On: 29-Aug-2016 13:45 Encounter Diagnosis: Problem not documented Appointment; Guanako Wood M.D. On: 16-Jan-2017 13:30 Encounter Diagnosis: Problem not documented Appointment; Mecca Baird M.A.|C.C.C.-A On: 16-Jan-2017 14:00 Encounter Diagnosis: Problem not documented Appointment; Guanako Wood M.D. On: 30-Jan-2017 12:30 Encounter Diagnosis: Problem not documented Appointment; Guanako Wood M.D. On: 13-Feb-2017 9:30 Encounter Diagnosis: Problem not documented Appointment; Guanako Wood M.D. On: 27-Feb-2017 10:00 Encounter Diagnosis: Problem not documented Appointment; Guanako Wood M.D. On: 05-Mar-2017 13:15 Encounter Diagnosis: Problem not documented Appointment; Guanako Wood M.D. On: 27-Mar-2017 11:45 Encounter Diagnosis: Problem not documented Appointment; Guanako Wood M.D. On: 10-Apr-2017 13:45 Encounter Diagnosis: Problem not documented Appointment; Guanako Wood M.D. On: 22-May-2017 11:00 Encounter Diagnosis: Problem not documented Appointment; Guanako Wood M.D. On: 19-Jun-2017 12:30 Encounter Diagnosis: Problem not documented Appointment; Guanako Wood M.D. On: 23-Jul-2017 12:45 Encounter Diagnosis: Problem not documented Appointment; Guanako Wood M.D. On: 24-Sep-2017 9:45 Encounter Diagnosis: Problem not documented Appointment; Mecca Baird M.A.|C.C.C.-A On: 24-Sep-2017 10:00 Encounter Diagnosis: Problem not documented Appointment; Guanako Wood M.D. On: 31-Dec-2017 9:45 Encounter Diagnosis: Problem not documented Appointment; Guanako Wood M.D. On: 01-Apr-2018 9:45 Encounter Diagnosis: Problem not documented"
--- OUTSIDE RECORDS SUMMARY | 2018-05-16 09:44 | External Medical Summary | Summary of Care ---
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 Refills: 0 Start : 13-Feb-2017 Active Tylenol Extra Strength 500 MG Oral Tablet TAKE 1 TABLET EVERY 4 TO 6 HOURS NEEDED. Refills: 0 Start : 13-Feb-2017 Active GuaiFENesin 100 MG/5ML Oral Syrup 30ML FOUR TIMES A DAY Refills: 0 Start : 13-Feb-2017 Active Allergies and Adverse Reactions Name Dates Details [...] smoker Vital Signs Date Test Result Details [id number] Weight 119 lb Status: Body Mass Index Calculated 21.77 kg/m2 Status: Body Surface Area Calculated 1.53 m2 Status: Temperature 97.5 f Status: Heart Rate 80 /min Status: Results Date Description Value Details Results not documented Plan of Care Name Dates Details Planned Observations Planned Goals not documented Planned Encounters Appointment; Guanako Wood M.D. On: 24-Sep-2017 9:45 Instructions Name Dates Details Instructions not documented [...] On: 23-Jul-2017 12:45 Encounter Diagnosis: Problem not documented"
--- OUTSIDE RECORDS SUMMARY | 2018-05-16 09:44 | External Medical Summary | Summary of Care ---
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 On 16-Jan-2017 Encounter Diagnosis: Problem not documented 13:30 Appointment; Guanako Wood M.D. On 29-Aug-2016 Encounter Diagnosis: Problem not documented 13:45
--- OUTSIDE RECORDS SUMMARY | 2018-05-16 09:44 | External Medical Summary | Summary of Care ---
:1960 Author Name Israel DealGuanako Address Unavailable Unavailable , Care Team Providers [...] Z93.0) Status: Active Medications Name Dates Details Aspirin 81 MG Oral Tablet Chewable CHEW AND SWALLOW 1 TABLET DAILY. Refills: 0 Start 13-Feb-2017 Active Ferrous Sulfate 325 (65 Fe) MG Oral Tablet TAKE 1 TABLET DAILY DIRECTED. Refills: 0 Start 13-Feb-2017 Active Xarelto 10 MG Oral Tablet 1 tablet daily Refills: 0 Start 13-Feb-2017 Active Magnesium Oxide 400 MG Oral Tablet TAKE 1 TABLET DAILY. Refills: 0 Start 13-Feb-2017 Active Docu 50 MG/5ML Oral Liquid TAKE DIRECTED. Refills: 0 Start 13-Feb-2017 Active Melatonin 3 MG Oral Capsule TAKE 1 CAPSULE AT BEDTIME NEEDED. Refills: 0 Start 13-Feb-2017 Active Milk of Magnesia Concentrate 2400 MG/10ML Oral Suspension Refills: 0 Start 13-Feb-2017 Active [place] 5-325 MG Oral Tablet TAKE 1 TO 2 TABLETS EVERY 4 TO 6 HOURS NEEDED. Refills: 0 Start 13-Feb-2017 Active Tylenol Extra Strength 500 MG Oral Tablet TAKE 1 TABLET EVERY 4 TO 6 HOURS NEEDED. Refills: 0 Start 13-Feb-2017 Active GuaiFENesin 100 MG/5ML Oral Syrup 30ML FOUR TIMES A DAY Refills: 0 Start 13-Feb-2017 Active Allergies and Adverse Reactions Name Dates Details Penicillins (Allergy) Status: Active Procedures Procedure Dates Details History of Hysterectomy History of Tubal Ligation History of Hip Replacement Procedures not documented Immunization Name Dates Details Immunizations not documented Family History Father Name Dates Details Family history of malignant neoplasm (V16.9, Z80.9) Status: Active Social History Name Dates Details - Status: Smoking Status Name Dates Details Former smoker Vital Signs Date Test Result Details 10-Apr-2017 13:57 Temperature 98 f Status: Comments: Method: Heart Rate 82 /min Status: Comments: Location: ; Physical Findings 98 Status: Comments: O2 Saturation Results Date Description Value Details Results not documented Plan of Care Name Dates Details Planned Observations Planned Goals not documented Planned Encounters Appointment; Provider: Guanako Wood M.D. On 11:00 Instructions Name Dates Details Instructions not documented Encounters Appointment; Guanako Wood M.D. On 27-Mar-2017 Encounter Diagnosis: Problem not documented 11:45 Appointment; Guanako Wood M.D. On 05-Mar-2017 Encounter Diagnosis: Problem not documented 13:15 Appointment; Guanako Wood M.D. On 27-Feb-2017 Encounter Diagnosis: Problem not documented 10:00 Appointment; Guanako Wood M.D. On 13-Feb-2017 Encounter Diagnosis: Problem not documented 09:30 Appointment; Guanako Wood M.D. On 30-Jan-2017 Encounter Diagnosis: Problem not documented 12:30 Appointment; Mecca Baird M.A.|C.C.C.-A On 16-Jan-2017 Encounter Diagnosis: Problem not documented 14:00 Appointment; Guanako Wood M.D. On 16-Jan-2017 Encounter Diagnosis: Problem not documented 13:30 Appointment; Guanako Wood M.D. On 29-Aug-2016 Encounter Diagnosis: Problem not documented 13:45"
--- OUTSIDE RECORDS SUMMARY | 2018-05-16 09:44 | External Medical Summary | Summary of Care ---
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 Refills: 0 Start 13-Feb-2017 Active [place] 5-325 MG Oral Tablet TAKE 1 TO 2 TABLETS EVERY 4 TO 6 HOURS NEEDED. Refills: 0 Start 13-Feb-2017 Active Milk of Magnesia Concentrate 2400 MG/10ML Oral Suspension Refills: 0 Start 13-Feb-2017 Active Melatonin 3 MG Oral Capsule TAKE 1 CAPSULE AT BEDTIME NEEDED. Refills: 0 Start 13-Feb-2017 Active Docu 50 MG/5ML Oral Liquid TAKE DIRECTED. Refills: 0 Start 13-Feb-2017 Active Magnesium Oxide 400 MG Oral Tablet TAKE 1 TABLET DAILY. Refills: 0 Start 13-Feb-2017 Active Xarelto 10 MG Oral Tablet 1 tablet daily Refills: 0 Start 13-Feb-2017 Active Ferrous Sulfate 325 (65 Fe) MG Oral Tablet TAKE 1 TABLET DAILY DIRECTED. Refills: 0 Start 13-Feb-2017 Active Aspirin 81 MG Oral Tablet Chewable CHEW AND SWALLOW 1 TABLET DAILY. Refills: 0 Start 13-Feb-2017 Active Allergies and Adverse Reactions Name Dates Details Penicillins (Allergy) Status: Active Procedures Procedure Dates Details Procedures not documented Immunization Name Dates Details Immunizations not documented Social History Smoking Status Name Dates Details Unknown if ever smoked Vital Signs Date Test Result Details 05-Mar-2017 13:01 Temperature 98.1 f Status: Comments: Method: Heart Rate 77 /min Status: Comments: Location: ; Physical Findings 18 Status: Comments: Respiration Physical Findings 98 Status: Comments: O2 Saturation 27-Feb-2017 10:13 Temperature 97.7 f Status: Comments: Method: Heart Rate 84 /min Status: Comments: Location: ; Physical Findings 16 Status: Comments: Respiration Height 62 in Status: Weight 108.6 lb Status: Physical Findings 99 Status: Comments: O2 Saturation Body Mass Index Calculated 19.86 kg/m2 Status: Body Surface Area Calculated 1.47 m2 Status: Results Date Description Value Details Results not documented Plan of Care Name Dates Details Planned Observations Planned Goals not documented Planned Encounters Appointment; Provider: Guanako Wood M.D. On 02-Apr-2017 14:30 Instructions Name Dates Details Instructions not documented Encounters Appointment; Guanako Wood M.D. On 05-Mar-2017 Encounter [...]
--- OUTSIDE RECORDS SUMMARY | 2018-05-16 09:44 | External Medical Summary | Summary of Care ---
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 Medications Name Dates Details Aspirin [...] Oral Suspension Refills: 0 Start 13-Feb-2017 Active [place] 5-325 MG Oral Tablet TAKE 1 TO [...] smoker Vital Signs Date Test Result Details 11:16 Heart Rate 89 /min Status: Comments: Location: ; Weight 113 lb Status: Physical Findings 98 Status: Comments: O2 Saturation Body Mass Index Calculated 20.67 kg/m2 Status: Body Surface Area Calculated 1.5 m2 Status: Results Date Description Value Details Results not documented Plan of Care Name Dates Details Planned Observations Planned Goals not documented Planned Encounters Appointment; Provider: Guanako Wood M.D. On 23-Jul-2017 12:30 Instructions Name Dates Details Instructions not documented Encounters Appointment; Guanako Wood M.D. On 10-Apr-2017 Encounter Diagnosis: Problem not documented 13:45 Appointment; Guanako Wood M.D. On 27-Mar-2017 Encounter [...]
--- OUTSIDE RECORDS SUMMARY | 2018-05-16 09:44 | External Medical Summary ---
:1960 Author Organization [employer] Care Team Providers Name Role Phone Kiara Foote Provider Role Unavailable Allergies No Known Allergies Problems No Known Problems Medications No Known Medications Results No Known Results Summary Purpose eClinicalWorks Submission
--- OUTSIDE RECORDS SUMMARY | 2018-05-16 09:44 | External Medical Summary ---
:1960 Author Organization [employer] Care Team Providers Name Role Phone Kiara Foote Provider Role Unavailable Allergies No Known Allergies Problems No Known Problems Medications Medication Code System Code Instructions Start End Date Status Dosage Date Calcium NDC 0 Oral 1 tab Glucosamine NDC 32915-81 500 MG Orally 1 capsule 17-12 Once a day with a meal ibuprofen NDC 0 Oral 1 tab Fish Oil NDC 91607-01 500 MG Orally 1 capsule 04-13 Twice a day Aspirin NDC 65143-44 325 MG Orally 1 tablet 16-78 Once a day Benadryl NDC 46991-38 25 MG Orally 1 capsule 00-24 every 6 hrs as needed Centrum Cardio NDC 51166-03 Orally not defined 29-20 Results No Known Results Summary Purpose eClinicalWorks Submission
--- OUTSIDE RECORDS SUMMARY | 2018-05-16 09:44 | External Medical Summary ---
:1960 Author Organization [employer] Care Team Providers Name Role Phone Kiara Foote Provider Role Unavailable Allergies No Known Allergies Problems Problem Type Condition Code Onset Dates Condition Status Assessment Jaw swelling R22.0 Active Medications No Known Medications Results No Known Results Summary Purpose eClinicalWorks Submission
--- OUTSIDE RECORDS SUMMARY | 2018-05-16 09:44 | External Medical Summary | Summary of Care ---
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 Eustachian tube dysfunction, bilateral (381.81, H69.83) Status: Active Medications Name Dates Details Aspirin [...] Suspension Refills: 0 Start : 13-Feb-2017 Active [place] 5-325 MG Oral Tablet TAKE 1 TO [...] Tablet Refills: 0 Start : 24-Sep-2017 Active Allergies and Adverse Reactions Name Dates [...] smoker Vital Signs Date Test Result Details [id number] Temperature 97.7 f Status: Heart Rate 86 /min Status: O2 SAT 96 % Status: Results Date Description Value Details Results not documented Plan of Care Name Dates Details Planned Observations Planned Goals not documented Planned Encounters Appointment; Gu[place] Wood M.D. On: 31-Dec-2017 9:45 Instructions Name Dates Details Instructions not [...] On: 24-Sep-2017 10:00 Encounter Diagnosis: Problem not documented"
--- OUTSIDE RECORDS SUMMARY | 2018-05-16 09:44 | External Medical Summary ---
:1960 Author Organization [employer] Care Team Providers Name Role Phone Kiara Foote Provider Role Unavailable Allergies No Known Allergies Problems No Known Problems Medications Medication Code System Code Instructions Start End Date Status Dosage Date Calcium NDC 0 Oral 1 tab Glucosamine NDC 76347-29 500 MG Orally 1 capsule 17-12 Once a day with a meal ibuprofen NDC 0 Oral 1 tab Fish Oil NDC 84617-37 500 MG Orally 1 capsule 04-13 Twice a day Aspirin NDC 60927-59 325 MG Orally 1 tablet 16-78 Once a day Benadryl NDC 14825-24 25 MG Orally 1 capsule 00-24 every 6 hrs as needed Centrum Cardio NDC 31592-10 Orally not defined 29-20 Results No Known Results Summary Purpose eClinicalWorks Submission
--- OUTSIDE RECORDS SUMMARY | 2018-05-16 09:44 | External Medical Summary | Summary of Care ---
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 On 27-Feb-2017 10:00 Instructions Name Dates Details Instructions not documented Encounters Appointment; Gu[place] Wood M.D. On 30-Jan-2017 Encounter Diagnosis: Problem not documented 12:30 Appointment; Mecca Baird M.A.|C.C.C.-A On 16-Jan-2017 Encounter Diagnosis: Problem not documented 14:00 Appointment; Gu[place] Wood M.D. On 16-Jan-2017 Encounter Diagnosis: Problem not documented 13:30 Appointment; Guan[place] Wood M.D. On 29-Aug-2016 Encounter Diagnosis: Problem not documented 13:45"
--- OUTSIDE RECORDS SUMMARY | 2018-05-16 09:44 | External Medical Summary | Summary of Care ---
:1960 Author Name Israel Deal, uGanako Address Unavailable Unavailable , Care Team Providers [...] Suspension Refills: 0 Start : 13-Feb-2017 Active [place] 5-325 MG Oral Tablet TAKE 1 TO [...] smoker Vital Signs Date Test Result Details No Known Vitals to report Results Date Description Value Details Results not documented Plan of Care Name Dates Details Planned Observations Planned Goals not documented Planned Encounters Appointment; Guanako Wood M.D. On: 01-Apr-2018 9:45 Instructions Name Dates Details Instructions not documented Encounters Appointment; Guanako Wood M.D. On: 29-Aug-2016 13:45 Encounter Diagnosis: Problem not documented Appointment; Guanako Wodo M.D. On: 16-Jan-2017 13:30 Encounter Diagnosis: Problem [...] On: 31-Dec-2017 9:45 Encounter Diagnosis: Problem not documented"
--- OUTSIDE RECORDS SUMMARY | 2018-05-16 09:44 | External Medical Summary ---
:1960 Author Organization [employer] Care Team Providers Name Role Phone Kiara Foote Provider Role Unavailable Allergies, Adverse Reactions, Alerts Substance Reaction Event Type N.K.D.A. Info Not Available Non Drug Allergy Problems Problem Type Condition Code Onset Dates Condition Status Assessment Nail fungus B35.1 Active Assessment Jaw swelling R22.0 Active Medications Medication Code System Code Instructions Start End Date Status Dosage Date Centrum Cardio NDC 15779-73 Orally not defined 29-20 Benadryl NDC 80832-85 25 MG Orally 1 capsule 00-24 every 6 hrs as needed Calcium NDC 0 Oral 1 tab ibuprofen NDC 0 Oral 1 tab Aspirin NDC 97219-06 325 MG Orally 1 tablet 16-78 Once a day Glucosamine NDC 65475-44 500 MG Orally 1 capsule 17-12 Once a day with a meal Fish Oil NDC 18408-47 500 MG Orally 1 capsule 04-13 Twice a day Procedures Procedure Coding System Code Date OFFICE VISIT, ASSISTANT HEAD CASHIER-LOW COMPLEXITY (30 MIN.) CPT-4 68941 Aug 04, 2016 Vital Signs Date/Time: Aug 04, 2016 Temperature 98.8 F Height 63 in Weight 107 lbs Blood Pressure Diastolic 62 mm Hg Blood Pressure Systolic 100 mm Hg Cardiac Monitoring Heart Rate 86 /min BMI 18.95 Index Oximetry 94 % Respiratory Rate 16 /min Results No Known Results Summary Purpose eClinicalWorks Submission
--- OUTSIDE RECORDS SUMMARY | 2018-05-16 09:44 | External Medical Summary | Summary of Care ---
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 On 05-Mar-2017 13:15 Instructions Name Dates Details Instructions not documented Encounters Appointment; Guanako Wood M.D. On 13-Feb-2017 Encounter [...]
[2018-05-16 10:04] VITALS: BMI 19.0
[2018-05-16] MEDS: LR 1,000 ML IV SCH ×2 (10:55→14:20)
[2018-05-16] MEDS: NOZIN NASAL SWAB NAS SCH ×4 (11:00→21:09)
[2018-05-16] MEDS ORDERED: CEFAZOLIN 1 G INJECTION IVP ONE (11:30)
[2018-05-16] MEDS ORDERED: ACETAMINOPHEN 650 MG/20.3 ML SOLUTION PO ONE (11:30)
[2018-05-16] MEDS ORDERED: ACETAMINOPHEN IV 1,000 MG/100 ML VIAL IV ONE (11:34)
[2018-05-16] MEDS ORDERED: MIDAZOLAM 2mg/2ml INJECTION ONE (12:05)
[2018-05-16] MEDS ORDERED: KETAMINE 500 MG/10 ML INJECTION ONE (12:07)
[2018-05-16] MEDS ORDERED: FentaNYL 250 MCG/5 ML INJECTION ONE (12:07)
[2018-05-16] MEDS ORDERED: PROPOFOL 20 ML ONE (12:11)
[2018-05-16] MEDS ORDERED: EPHEDRINE 50mg/ml INJECTION ONE (12:12)
[2018-05-16] MEDS ORDERED: VANCOMYCIN 1,000 MG INJECTION IAR ONE (13:06)
[2018-05-16] MEDS ORDERED: MORPHINE SULFATE 10mg/ml VIAL ONE (15:58)
--- NOTE | 2018-05-16 16:27 | XRay Report ---
Indication: postoperative image PROCEDURE: XR pelvis w/ 1 view RT hip: Encounter: Initial Comparison: April 17, 2018 Findings: Postoperative changes of right total hip replacement are seen. There is expected postoperative subcutaneous gas. No evidence of hardware failure or acute fracture. No retained radiopaque surgical instruments or sponges seen. Chronic appearing left superior and inferior pubic fractures. Screw tract in the right femur from prior hardware removal. Impression: New right total hip prosthesis without evidence of immediate complication. .
[2018-05-16] MEDS: MORPHINE SULFATE 10mg/ml VIAL IVP PRN ×2 (16:37→16:52)
--- NOTE | 2018-05-16 17:49 | Anesthesia Preoperative Report ---
Anesthesia Preoperative Record - Date and Time Date: 05/16/18 Preoperative Diagnosis: Right MEGHAN with hardware removal NPO Since Date: 05/15/18 NPO Since Time: 23:00 Allergies/Adverse Reactions: Allergies Allergy/AdvReac Type Severity Reaction Status Date / Time No Known Allergies Allergy Verified 05/16/18 10:07 - Vital Signs Vital Signs: Temperature 97.4 F 05/16/18 16:04 Pulse Rate 74 05/16/18 17:05 Respiratory Rate 20 05/16/18 17:05 Blood Pressure 106/74 05/16/18 17:05 Pulse Oximetry 98 05/16/18 17:05 Height and Weight: Height 5 ft 3.5 in Weight 49.4 kg Body Mass Index 19.0 - Medications Inpatient Medications: Current Medications Lactated Ringer's (Lactated Ringers) 1,000 mls @ 50 mls/hr IV .Q20H TAYE Last Admin: 05/16/18 14:20 Dose: 50 mls/hr Epinephrine HCl 0.25 mg/Bupivacaine HCl 30 ml/Ketorolac Tromethamine 60 mg/ Sodium Chloride 62.25 mls @ 1 mls/hr OPSITE INTRAOP ONE PRN Reason: Protocol Stop: 05/18/18 23:58 Last Admin: 05/16/18 12:36 Dose: 1 mls/hr Morphine Sulfate (Morphine Sulfate Vial) 0 mg IVP Q10M PRN Last Admin: 05/16/18 16:52 Dose: 2 mg Sodium Chloride (Iv Flush) 10 - 80 ml IV PRN PRN PRN Reason: Flushing Home Medications: Home Medications Medication Instructions Recorded Confirmed Type Coreg (carvedilol) 3.125 mg tablet 3.125 mg PO BID 11/28/17 05/16/18 History Zestril (lisinopril) 2.5 mg tablet 2.5 mg PO DAILY 11/28/17 05/16/18 History calcium carbonate 500 mg (1,250 1 tab PO BID 11/28/17 05/16/18 History mg)-vitamin D3 200 unit tablet multivitamin-ferrous 1 tab PO DAILY 11/28/17 05/16/18 History fumarate-folic acid 18 mg-400 mcg tablet Aspirin [Aspirin EC] 81 mg PO DAILY 12/11/17 05/16/18 History Glucosamine HCl 1,500 mg PO DAILY 12/11/17 05/16/18 History Aler-Cap (Diphenhydramine) 25 mg 25 mg PO BID cap 03/21/18 05/16/18 History capsule Acetaminophen [Tylenol] 1,000 mg PO BID 05/03/18 05/16/18 History Risedronate Sodium 35 mg PO 1 WEEK 05/03/18 05/16/18 History levothyroxine (Tirosint) 50 mcg 50 mcg PO DAILY #90 cap 05/08/18 05/16/18 Rx capsule Hydrocodone/APAP 5/325 [Rang[place] 1 tab PO BID 05/16/18 05/16/18 History 5/325] Is Patient on Beta [place]?: Yes - Medical History Respiratory: Reports: Chronic Obstructive Pulmonary Disease (COPD), Pneumonia ( 2017), Other (laryngeal cancer) DENIES: Sleep Apnea Cardiovascular: Reports: Angina (none since [place] August 2008), Congestive Heart Failure (ischemic cardiomyopathy EF 25-35%), Coronary Artery Disease, Hypertension, Myocardial Infarction (2007- SEE BLAKE- EVERY 6 MTHS) Gastrointestional: Reports: Other (PEG tube placed and removed) DENIES: Nausea or Vomiting Present Neuro/Musculoskeletal: Reports: Muscle Weakness, Other (osteoporosis) Denies: Back Problems, Cerebrovascular Accident, Depression, Headaches, Loss of Consciousness, Neuromuscular Disorder, Paralysis, Paresthesia, Syncope, Seizures Renal/Endocrine: Reports: Thyroid Disease (hypothyroidism) Other History: Reports: Chemotherapy, Cancer (tonsillar-treated with radiation and chemo in 2016), Other (radiation) DENIES: Now - Surgical History HEENT Surgeries: Reports: Ear Surgery (wolf myringotomy), Eye Surgery (bilateral cataracts removed), Oral Surgery (full mouth tooth extraction), Other ( xerostomia-dry mouth) Cardiac Surgeries/Treatments: Reports: Cardiac Catheterization (STENT placed 2007), Internal Defibrillator (2016), Pacemaker (MEDTRONIC Pacemaker and defib to left upper chest) Respiratory Surgery/Treatments: Reports: Tracheostomy (2016, removed) GI Surgery/Treatments: Reports: Colon Resection (AFTER BEING NICKED DURING OVARIAN SURGERY), 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 HEEL SPUR SURGERY) Reproductive Surgery/Treatment: Reports: Hysterectomy, Hysteroscopy, Oophorectomy (w/ colon repair (nicked during surgery)), Tubal Ligation Anesthesia Reactions: None Hx Family Anesthesia Reaction: No - Social History Smoking Status: Former smoker Pack-years: 30 Hx Chewing Tobacco Use: No Second Hand Exposure: No Substance Use Type: does not use Alcohol Intake Frequency: holidays/special occasions only - Pertinent Findings Laboratory: CBC and BMP 05/16/18 16:18 05/16/18 09:57 BMP 05/16/18 09:57 Sodium 143 Potassium 4.2 Chloride 104 Carbon Dioxide 28 BUN 18.0 H Creatinine 0.7 Glucose 97 Calcium 10.0 EKG: Sinus Rhythm - Physical Exam Respiratory Exam: Present: lungs clear, bilateral breath sounds equal - Airway Assessment Mallampati Score: III TMD: 3 Fingerbreadths Neck Extension: good Overall Assessment: may be difficult mask vent, may be difficult intubation - ASA ASA Score: 4 - Plan Anesthesia: General Inhalation Gases - Discussion Discussion: Discussed risks/options/alternatives of anesthesia and questions answered. Patient consents. Nursing pain assessment noted. Present for Discussion: friend Attestation Statement: Prior to the delivery of any anesthetic medication, I examined the patient, developed the plan, obtained the patient's consent and discussed the risk and benefits of the procedure with the patient/guardian. - Additional Information Seen by Anesthesia: Yes
--- NOTE | 2018-05-16 17:50 | Anesthesia Postoperative Note ---
- Date and Time Date: 05/16/18 Time: 16:38 - Status Patient Participated in Evaluation: Patient Participated in Person Vital Signs: Temperature 97.4 F 05/16/18 16:04 Pulse Rate 74 05/16/18 17:05 Respiratory Rate 20 05/16/18 17:05 Blood Pressure 106/74 05/16/18 17:05 Pulse Oximetry 98 05/16/18 17:05 Respiratory Function: Airway Patent Cardiovascular Function: Regular Pulse EKG: Sinus Rhythm Mental Status: Alert and Oriented Pain Intensity: 0 Hydration: IV Infusing Complications During Recover: None Apparent - Follow-Up Instructions Instructions: Per Surgeon
[2018-05-16] MEDS ORDERED: DiphenhydrAMINE 25 MG CAPSULE PO PRN (18:26)
[2018-05-16] MEDS ORDERED: DEXAMETHASONE 20 MG/5 ML INJECTION IVP ONE (18:26)
[2018-05-16] MEDS ORDERED: LORazepam 1 MG TABLET PO PRN (18:26)
[2018-05-16] MEDS ORDERED: DiphenhydrAMINE 50 MG/ML INJECTION IVP PRN (18:26)
[2018-05-16] MEDS ORDERED: NOZIN NASAL SWAB NAS ONE (18:26)
[2018-05-16] MEDS ORDERED: FALL RISK - PHARMACY CONSULT MC ONE (19:13)
[2018-05-16] MEDS: NAPROXEN 220 MG TABLET PO SCH (19:28)
[2018-05-16] MEDS: NS 1,000 ML IV SCH (19:28)
[2018-05-16] MEDS: ACETAMINOPHEN 325 MG TABLET PO SCH ×2 (19:29→20:59)
[2018-05-16] MEDS: SENNOSIDES 8.6 MG TABLET PO SCH (21:00)
[2018-05-16] MEDS: ASPIRIN *EC* 81 MG TABLET PO SCH (21:00)
[2018-05-16] MEDS: DiphenhydrAMINE 25 MG CAPSULE PO SCH (21:00)
[2018-05-16] MEDS: DOCUSATE SODIUM 100 MG CAPSULE PO SCH (21:01)
[2018-05-16] MEDS: CARVEDILOL 3.125 MG TABLET PO SCH (21:04)
[2018-05-16] MEDS: Oxycodone *IR* 5 MG TABLET PO PRN (21:08)
[2018-05-16] MEDS: CEFAZOLIN 1 G in NS 100 ML IV SCH (21:08)
[2018-05-17] MEDS: Oxycodone *IR* 5 MG TABLET PO PRN ×2 (02:12→16:50)
[2018-05-17] MEDS: CEFAZOLIN 1 G in NS 100 ML IV SCH (03:44)
[2018-05-17] MEDS: LEVOTHYROXINE 50 MCG TABLET PO SCH (05:53)
[2018-05-17] MEDS: NOZIN NASAL SWAB NAS SCH ×4 (05:53→21:07)
[2018-05-17] MEDS: NS 1,000 ML IV SCH (06:03)
--- NOTE | 2018-05-17 08:12 | Orthopedic Progress Note ---
Date: Date: 05/17/18 Time: 807 Subjective/Severity of Illness: Pt is doing well. Denies lightheadedness, dizziness, SOA, cough or CP. She is asking about going home today. Denies much pain at this time. No other complaints / concerns. Orthopedic Exam Vital signs: Temperature 97.1 F 05/17/18 03:47 Pulse Rate 82 05/17/18 08:04 Respiratory Rate 20 05/17/18 08:04 Blood Pressure 90/61 05/17/18 08:04 Pulse Oximetry 100 05/17/18 08:04 - Constitutional General Appearance: Present: alert, cooperative, no acute distress - Respiratory Exam Present: non-labored - Cardiovascular Exam Present: pedal pulses intact - Extremities Exam Present: pulses intact. Absent: cyanosis, calf tenderness - Dressing Dressing: dry, intact, no drainage - Integumentary Exam Present: pink, warm, dry - Neurological Exam Present: no deficits - Psychiatric Exam Present: alert, normal affect - Labs Result Diagrams: 05/17/18 04:06 05/17/18 04:06 Abnormal lab results 05/16/18 05/16/18 05/17/18 Range/Units 09:57 16:18 04:06 Hgb 9.4 L 7.1 L D (12-16) GM/DL Hct 21.7 L (36-46) % BUN 18.0 H (7-17) MG/DL BUN/Creatinine Ratio (6-26) RATIO Glucose (65-110) MG/DL Calcium (8.4-10.2) MG/DL Crossmatch (AHG) 05/17/18 05/17/18 Range/Units 04:06 06:57 Hgb (12-16) GM/DL Hct (36-46) % BUN 22.0 H (7-17) MG/DL BUN/Creatinine Ratio 31 H (6-26) RATIO Glucose 145 H (65-110) MG/DL Calcium 8.2 L D (8.4-10.2) MG/DL Crossmatch (AHG) See Detail H & H 05/16/18 05/17/18 Range/Units 16:18 04:06 Hgb 9.4 L 7.1 L D (12-16) GM/DL Hct 21.7 L (36-46) % Orthopedic Assessment and Plan (1) Post-traumatic osteonecrosis of right femur Status: Acute Assessment and Plan: Consult hospitalist service to help with medical mgmt. Pt has CAD (s/p stent) , reduced EF, Cardiomyopathy and other medical conditions. Hgb 7.1 this AM. TxM ordered this AM but blood is not ready yet. Current anti-coagulation protocol for VTE prophylaxis. SCD's and mobilization for added coverage. PT/OT services to improve independent function. WBAT Discharge Planning per Case Management. - Anticoagulation Therapy Anticoagulation: ASA 81 mg PO BID x6 weeks Hospital Course Summary Disclaimer: The visit summary below is not to be considered part of the above Progress Note.
--- NOTE | 2018-05-17 08:48 | Operative Note ---
DATE OF OPERATION 05/16/2018 PREOPERATIVE DIAGNOSIS Right hip avascular necrosis. POSTOPERATIVE DIAGNOSIS Right hip avascular necrosis. PROCEDURE 1. Right total hip arthroplasty 2. Removal of deep hardware right proximal femur. SURGEON Luis Fernando Gupta MD FOOD SAFETY AUDITOR Zackery Ahumada PA-C COMPLICATIONS None ANESTHESIA General EBL 500 mL FLUIDS Please see Anesthetic records. DESCRIPTION OF PROCEDURE Mrs. Moss and her right hip were identified and marked in the preoperative holding area. She was brought back to the operating suite and placed under general anesthesia. She was then placed in the lateral decubitus position with her right side up. The right lower extremity was then prepped and draped in my normal sterile fashion. Time-out was performed. She had a previous TFN in place. I started with my usual posterior incision centered over the greater trochanter. Sharp dissection was carried through the subcutaneous tissue down to the muscle fascia which was then split. I then split her IT band down to get to the helical blade. The helical blade was exposed. There was a little bit of bone that had overgrown over it. We then moved to the greater trochanter. The abductors were split so that I could get proximal access to the giovany. We then removed the locking nut. We did not have the right device to grab onto the helical blade. Our set was a TFN set and apparently this was a TFN Advanced nail. For this reason, we grabbed the helical blade with a vice reception agent and was able to back it out that way. We then removed the distal locking screw through a 2 cm incision. Fluoro guidance was utilized. We were then able to grab the giovany proximally, again with vice reception agent, and back it out easily. At this point, the short external rotators were then identified and detached. Capsulotomy was performed and the hip dislocated. A femoral neck osteotomy was made at a pre-templated level measuring down 50 mm from the top of the femoral head and was removed. The acetabulum was then exposed, labrum was removed. We then used the robot to ream with a 51 reamer and then used the robot to place a 52 cup. I did not feel like the cup was down far enough with the robot, so I hand reamed a little bit deeper again with a 51 reamer and placed the 52 cup manually without the robot. It had a good bite and I did place two screws in the posterior superior quadrant. A liner was then placed. The proximal femur was then prepared first with a cookie cutter and then with broaches to a size 5. With fluoroscopy, we took an x-ray of the hip reduced with a size 5 and unfortunately the stem stopped right at the level of the previous locking screw. I felt this gave her a higher risk for periprosthetic fracture, so we then moved to a revision stem. We reamed to a 16 and then placed a 16 revision stem. This was then overreamed for a body to a size 23. We trialed with a 23+20 body with a +5 head and this gave her excellent stability throughout range of motion and leg lengths were checked with the robot and it worked well. Final size 23+20 body was then placed, holding the proper anteversion and the screw set. We trialed again with a +5 head; this was good so a final +5 ceramic head was placed and the hip reduced one final time. Joint cocktail was injected throughout the soft tissues including the capsule, 3 grams of TXA was also left in the joint for five minutes and then irrigated out. Betadine solution was used throughout the case for irrigation. The capsulotomy was repaired with #1 Ethibond. The IT band and the muscle fascia were repaired with #1 Vicryl and the skin was closed with 2-0 Vicryl followed by Dermabond and then a sterile dressing. She was placed back into a supine position and extubated and taken to the recovery room under the care of Anesthesia. She tolerated the procedure well and there were no complications. ELIO
[2018-05-17] MEDS: ASPIRIN *EC* 81 MG TABLET PO SCH ×2 (09:12→20:11)
[2018-05-17] MEDS: CARVEDILOL 3.125 MG TABLET PO SCH ×3 (09:13→17:24)
[2018-05-17] MEDS: POLYETHYL GLYCOL 3350 17gm PACKET PO SCH (09:13)
[2018-05-17] MEDS: NAPROXEN 220 MG TABLET PO SCH ×2 (09:13→16:50)
[2018-05-17] MEDS: DiphenhydrAMINE 25 MG CAPSULE PO SCH ×2 (09:13→20:11)
[2018-05-17] MEDS: DOCUSATE SODIUM 100 MG CAPSULE PO SCH ×2 (09:13→20:10)
[2018-05-17] MEDS: LISINOPRIL 2.5 MG TABLET PO SCH (09:18)
[2018-05-17] MEDS: ACETAMINOPHEN 325 MG TABLET PO SCH ×4 (09:21→20:10)
--- NOTE | 2018-05-17 10:16 | Consult Note ---
Consult Information - Data of Consult Consult date: 05/17/18 Requesting Physician: Luis Fernando Gupta MD Primary Care Provider: Fabienne Ta APRN - Consult Narrative Reason for consult: Anemia, CAD History of present illness: Nancy Moss is a 57 y/o woman seen in consultation from Dr. Gupta for anemia and CAD. She was admitted on 05/16/18 for removal of hardware to right proximal femur and right total hip arthroplasty, which went as expected. On day of surgery, hgb was 9.6. POD #1, it was 7.1. She reports that she feels a bit dizzy and lightheaded when she walks, but denies feeling weak or short of breath. She denies chest pain/palpitations. No nausea/vomiting and she's been eating and drinking well thus far. She has chronic dysphagia and has noticed a little discomfort in her throat postop (pt was intubated). She has been able to void without problems. She feels cold, and her hands feel a little numb b/c of how cold she is. She denies paresthesias to her lower extremities. She denies recent illnesses or new health concerns. Past Medical History Medical History: Medical History (Last Updated 05/08/18 @ 11:16 by Fabienne Ta APRN) Osteoporosis of lumbar spine (Chronic) Ischemic cardiomyopathy (Chronic) EF 25-35% on 07/19/2017 Family history of colon cancer in father (Chronic) History of fracture of right hip (Chronic) occurred after a fall 12/2016, surgical repair with hardware Congestive heart failure (Chronic) Oropharyngeal cancer (Chronic) stage IV, locally advanced, dx 07/2016, treated with chemotherapy and radiation. 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 Ear tubes. Heel spur 1998, 1999. Hysterectomy and one ovary removed 2002. Oophorectomy due to ovarian cyst 2003. Colon repair 2003 (colon nicked during oophorectomy procedure). Coronary artery stent to LAD post heart attack 2007. Bilateral cataract excision around 2009. Tracheostomy, PEG, Port-A-Cath 2015. Tracheostomy was decannulated by Dr. Wood on 06/11/17. Teeth extraction 10/2016. Right hip fracture and surgical repair with hardware after fall 12/2016. Subsequent Removal of deep hardware followed by Right total hip arthroplasty 05/16/18. ICD defibrillator and Pacemaker implanted 07/19/2017 Family History: Family History (Last Updated 05/08/18 @ 11:16 by Fabienne Ta, FRANKIE) Father , age 86 Cancer of colon Colon polyps Mother High blood pressure High cholesterol Sister High blood pressure Maternal Grandmother History of stroke Maternal Uncle Coronary artery disease Past heart attack Diabetes Maternal Aunt Diabetes Maternal Uncle Leukemia Maternal Aunt COPD (chronic obstructive pulmonary disease) Maternal Uncle Cancer of lung Family History: As Above - Social History Smoking status: Former smoker Packs-years: 30 Quit date: 11/12/16 Substance use type: does not use Alcohol intake frequency: holidays/special occasions only Housing: apartment Current residence: Apartment/Private Home Review of Systems All systems PM: 10-point ROS was reviewed, no additional remarkable complaints except - EENMT Mouth/Throat: Present: changes in swallowing (postop), change in taste (doesn't like the water here) - Neurological Neurological: Present: dizziness (with ambulation), numbness (to hands - they feel cold) Medications Home Medications Medication Instructions Recorded Confirmed Type Coreg (carvedilol) 3.125 mg tablet 3.125 mg PO BID 11/28/17 05/16/18 History Zestril (lisinopril) 2.5 mg tablet 2.5 mg PO DAILY 11/28/17 05/16/18 History calcium carbonate 500 mg (1,250 1 tab PO BID 11/28/17 05/16/18 History mg)-vitamin D3 200 unit tablet multivitamin-ferrous 1 tab PO DAILY 11/28/17 05/16/18 History fumarate-folic acid 18 mg-400 mcg tablet Aspirin [Aspirin EC] 81 mg PO DAILY 12/11/17 05/16/18 History Glucosamine HCl 1,500 mg PO DAILY 12/11/17 05/16/18 History Aler-Cap (Diphenhydramine) 25 mg 25 mg PO BID cap 03/21/18 05/16/18 History capsule Acetaminophen [Tylenol] 1,000 mg PO BID 05/03/18 05/16/18 History Risedronate Sodium 35 mg PO 1 WEEK 05/03/18 05/16/18 History levothyroxine (Tirosint) 50 mcg 50 mcg PO DAILY #90 cap 05/08/18 05/16/18 Rx capsule Hydrocodone/APAP 5/325 [[place] 1 tab PO BID 05/16/18 05/16/18 History 5/325] Allergies Allergy/AdvReac Type Severity Reaction Status Date / Time No Known Allergies Allergy Verified 05/16/18 10:07 Exam Vital Signs: Temperature 98.3 F 05/17/18 08:04 Pulse Rate 82 05/17/18 08:04 Respiratory Rate 20 05/17/18 08:04 Blood Pressure 90/61 05/17/18 08:04 Pulse Oximetry 100 05/17/18 08:04 Height/Weight/BMI: Height 1.61 m Weight 54 kg Body Mass Index 19.0 - Constitutional Present: no acute distress, well nourished, well developed, thin - Routine HEENT Exam Head: Present: normocephalic Eye: Present: PERRL. Absent: conjunctival icterus, scleral injection ENT: Present: mucous membranes dry, oropharynx clear. Absent: dentition normal (edentulous) - Routine Neck Exam Present: supple - Routine Respiratory Exam Present: CTA bilaterally - Routine Cardiovascular Exam Present: RRR, S1, S2 - Routine Abdominal Exam Present: soft, normoactive bowel sounds, non distended, non tender - Routine Extremities Exam Present: no edema, pulses intact Comments: ice pack to right hip - Routine Skin Exam Present: intact, dry, warm - Routine Neurological Exam Present: alert, oriented X3, CN II-XII intact, moving all extremities, vision grossly intact, hearing grossly intact, normal speech. Absent: sensory deficit , motor deficit, altered mental status, facial asymmetry - Routine Psychiatric Exam Present: normal affect, normal thought process, cooperative Results - Labs CBC & Chem 7: 05/17/18 17:48 05/17/18 04:06 Assessment and Plan (1) Postoperative anemia Current visit: Yes Status: Acute Assessment and Plan: Assessment Postop symptomatic anemia Hypotension Osteonecrosis of right femur, s/p removal of hardware and right total arthroplasty on 05/16/18 CAD Ischemic cardiomyopathy CHF, systolic, EF 25-35% 07/2017 Stage FANNIE oropharyngeal cancer extending to the base of the tongue (2016). Treated with cis-[place] and radiation therapy. Hypothyroid Dysphagia Osteoporosis Plan Hgb decreased to 7.1; c/o dizziness/lightheadedness with ambulation --> transfuse PRBC x1 unit. BP low; though pt has hx of low BP at baseline. With anemia, BP meds held this am. Cont to monitor. Stop IVF as pt taking in oral well and hx of CHF/ischemic cardiomyopathy. Electrolytes are stable. D/W DAWIT Light and with Dr. Mast. thank you for this consult. DVT Prophylaxis: SCD's Resuscitation Status: Full Code - Physician Narrative Physician: Thaddeus Mast MD Narrative: Date: 05/17/18 Time: 1753 Have independently interviewed and examined pt. Chart reviewed. Case discussed with my WRECKING SUPERVISOR. Care plan developed with my supervision; agree with above. Doing better this evening. Tolerated blood transfusion. Feels less chilled now that nurses have increase the room temperature. Breathing well-not feeling congested or SOA. No pain with breathing or cough. Denies chest pressure or discomfort. No nausea. Some ab bloating. Post op pain varies, but medications are helping and tolerates then well. Lungs: decreased bilaterally, no distress on RA CV: regular AB: soft nt BS decreased MSE: awake alert Plan: Transfusion given. BP improving. IVF stopped to decrease risk for overload. Monitor blood counts. Continue with post op pain control. Encourage therapy and activities. Encourage IS use. Will continue to follow patient medically. Hospital Course Summary Disclaimer: The visit summary below is not to be considered part of the above Progress Note. Hospital Course: 05/17/18 Hgb decreased to 7.1; c/o dizziness/lightheadedness with ambulation --> transfuse PRBC x1 unit. BP low; though pt has hx of low BP at baseline. With anemia, BP meds held this am. Cont to monitor. Stop IVF as pt taking in oral well and hx of CHF/ischemic cardiomyopathy. Electrolytes are stable.
[2018-05-17] MEDS ORDERED: ALTEPLASE (Cathflo*) 2mg INJECTION IV ONE (10:58)
[2018-05-17] MEDS ORDERED: .WATER FOR INJECTION,STERILE 10 ML VIAL IV ONE (11:03)
[2018-05-17] MEDS ORDERED: SENNOSIDES 8.6 MG TABLET PO PRN (15:59)
[2018-05-17] MEDS: SENNOSIDES 8.6 MG TABLET PO SCH (20:11)
[2018-05-18] MEDS: LEVOTHYROXINE 50 MCG TABLET PO SCH (05:49)
[2018-05-18] MEDS: NOZIN NASAL SWAB NAS SCH ×4 (05:49→22:10)
[2018-05-18] MEDS: CARVEDILOL 3.125 MG TABLET PO SCH ×2 (08:11→17:25)
[2018-05-18] MEDS: LISINOPRIL 2.5 MG TABLET PO SCH (08:11)
[2018-05-18] MEDS: Oxycodone *IR* 5 MG TABLET PO PRN ×2 (09:15→20:33)
[2018-05-18] MEDS: ASPIRIN *EC* 81 MG TABLET PO SCH ×2 (09:15→20:34)
[2018-05-18] MEDS: ACETAMINOPHEN 325 MG TABLET PO SCH ×4 (09:16→20:34)
[2018-05-18] MEDS: NAPROXEN 220 MG TABLET PO SCH ×2 (09:16→17:31)
[2018-05-18] MEDS: DOCUSATE SODIUM 100 MG CAPSULE PO SCH ×2 (09:17→20:35)
[2018-05-18] MEDS: DiphenhydrAMINE 25 MG CAPSULE PO SCH ×2 (09:17→20:35)
[2018-05-18] MEDS: POLYETHYL GLYCOL 3350 17gm PACKET PO SCH (09:18)
--- NOTE | 2018-05-18 09:55 | Orthopedic Progress Note ---
Date: Date: 05/18/18 Time: 950 Subjective/Severity of Illness: Mrs. Moss is lying in bed this morning during rounds. She reports her right hip pain has been well controlled and was up ambulating the halls last night. She received 1 unit PRBC transfusion yesterday for hgb 7.1. Hgb improved to 9.0 , but back down to 7.2 this morning. SBP 90-100s, she denies any dizziness/lightheadedness, CP, SOA. She does report epigastric pain, she does not routinely take medications for reflux. Denies abdominal pain, nausea. Tolerating PO well. Orthopedic Exam Vital signs: Temperature 97.1 F 05/17/18 03:47 Pulse Rate 82 05/17/18 08:04 Respiratory Rate 20 05/17/18 08:04 Blood Pressure 90/61 05/17/18 08:04 Pulse Oximetry 100 05/17/18 08:04 - Constitutional General Appearance: Present: alert, cooperative, no acute distress - Respiratory Exam Present: CTA bilaterally, non-labored - Cardiovascular Exam Present: Regular Rate/Rhythm, pedal pulses intact - Extremities Exam Present: no edema, pulses intact. Absent: calf tenderness - Dressing Dressing: dry, intact, no drainage - Integumentary Exam Present: pink, warm, dry - Neurological Exam Present: intact to light touch, no deficits - Psychiatric Exam Present: alert, normal affect - Labs Result Diagrams: 05/18/18 05:09 05/18/18 05:09 Abnormal lab results 05/17/18 05/17/18 05/17/18 Range/Units 06:57 12:36 17:48 Hgb 9.0 L D (12-16) GM/DL Hct (36-46) % Chloride (98-107) MEQ/L Anion Gap (5-15) meq/L Creatinine (0.7-1.2) mg/dL BUN/Creatinine Ratio (6-26) RATIO Calcium (8.4-10.2) MG/DL Crossmatch (AHG) See Detail See Detail 05/18/18 05/18/18 Range/Units 05:09 05:09 Hgb 7.2 L D (12-16) GM/DL Hct 22.6 L (36-46) % Chloride 110 H (98-107) MEQ/L Anion Gap 4 L (5-15) meq/L Creatinine 0.6 L (0.7-1.2) mg/dL BUN/Creatinine Ratio 28 H (6-26) RATIO Calcium 8.2 L (8.4-10.2) MG/DL Crossmatch (AHG) H & H 05/16/18 05/17/18 05/17/18 Range/Units 16:18 04:06 17:48 Hgb 9.4 L 7.1 L D 9.0 L D (12-16) GM/DL Hct 21.7 L (36-46) % 05/18/18 Range/Units 05:09 Hgb 7.2 L D (12-16) GM/DL Hct 22.6 L (36-46) % Orthopedic Assessment and Plan (1) Post-traumatic osteonecrosis of right femur Status: Acute Assessment and Plan: Hospitalist managing medically- discussed with FRANKIE Prieto. Plan 1 unit transfusion again today and start patient on PPI. Current anti-coagulation protocol for VTE prophylaxis. SCD's and mobilization for added coverage. PT/OT services to improve independent function. WBAT Discharge Planning per Case Management. Hospital Course Summary Disclaimer: The visit summary below is not to be considered part of the above Progress Note. Hospital Course: 05/17/18 Hgb decreased to 7.1; c/o dizziness/lightheadedness with ambulation --> transfuse PRBC x1 unit. BP low; though pt has hx of low BP at baseline. With anemia, BP meds held this am. Cont to monitor. Stop IVF as pt taking in oral well and hx of CHF/ischemic cardiomyopathy. Electrolytes are stable.
[2018-05-18] MEDS ORDERED: NS FLUSH BAG 500ml IV PRN (11:21)
--- NOTE | 2018-05-18 11:25 | Progress Note ---
- Date 05/18/18 Subjective: Betty was dozing in her recliner but easily awakened. She states that she feels tired but otherwise is doing fairly well. She complains of right hip pain as expected. She also notes some epigastric discomfort which has been present since yesterday. She states it is worse when she lies flat, but improves when she sits up. She also states that after she drank orange juice this morning it became worse. She denies any history of acid reflux. She denies chest pain or shortness of breath. She is feeling a little bit dizzy and lightheaded this morning but hasn't walked outside of her room yet today. Oral intake has been good and she denies nausea or vomiting. Objective Vital signs: Temperature 97.2 F 05/18/18 11:03 Pulse Rate 87 05/18/18 11:03 Respiratory Rate 16 05/18/18 11:03 Blood Pressure 95/62 05/18/18 11:03 Pulse Oximetry 99 05/18/18 11:03 Height/Weight/BMI: Height 1.61 m Weight 56.5 kg Body Mass Index 19.0 - Constitutional Present: no acute distress, well nourished, well developed - Routine HEENT Exam Head: Present: normocephalic Eye: Present: PERRL. Absent: conjunctival icterus, scleral injection ENT: Present: oropharynx clear - Routine Respiratory Exam Present: CTA bilaterally - Routine Cardiovascular Exam Present: RRR, S1, S2 - Routine Abdominal Exam Present: soft, normoactive bowel sounds, tenderness (minimal epigastric tenderness), non distended - Routine Extremities Exam Present: no edema - Routine Skin Exam Present: intact, dry, warm - Routine Neurological Exam Present: alert, oriented X3, moving all extremities - Routine Psychiatric Exam Present: normal affect, normal thought process, cooperative Results - Labs CBC & Chem 7: 05/18/18 05:09 05/18/18 05:09 Assessment and Plan (1) Postoperative anemia Current visit: Yes Status: Acute Assessment and Plan: Assessment Postop symptomatic anemia Hypotension Osteonecrosis of right femur, s/p removal of hardware and right total arthroplasty on 05/16/18 CAD Ischemic cardiomyopathy CHF, systolic, EF 25-35% 07/2017 Stage FANNIE oropharyngeal cancer extending to the base of the tongue (2015). Treated with cis-[place] and radiation therapy. Hypothyroid Dysphagia Osteoporosis Plan Hemoglobin remains low at 7.2 despite blood transfusion yesterday. She remains symptomatic with lightheadedness/dizziness. She has ischemic cardiomyopathy with a low EF -- well transfuse 1 more unit today. With her weight trending up, will also give Lasix 20 mg IV 1. Her potassium is stable at 4.2, and renal function is also stable. Blood pressure is about at baseline. This morning, but given her ongoing anemia , will hold her Coreg and lisinopril this morning to ensure blood pressure remains stable. Start Protonix for reflux symptoms. Discussed with Anabel Berry APRN, and with Dr. Pierson. I have seen and examined this patient in conjunction with the AIRPLANE DISPATCHER above. I agree with the findings and plan above. Patient just received her protonix 20 minutes prior to my visit. She is going to try to eat bland foods today as well. She is just starting her blood transfusion. Gen: alert and oriented X 3. NAD. CV: RRR Lungs: CTAB, no w/r/r Abd: soft, NT, ND, + BS Ext: no c/c/e. + pulses Transfuse 1 unit PRBCs today as above, monitor counts. Lasix with transfusion. Start PPI. Monitor for any signs of GI bleed - no stools since admission. Likely all post- op anemia. DVT Prophylaxis: SCD's GI Prophylaxis: Protonix Resuscitation Status: Full Code - Physician Narrative Narrative: Date: 05/18/18 Time: 1115 Hospital Course Summary Disclaimer: The visit summary below is not to be considered part of the above Progress Note. Hospital Course: 05/17/18 Hgb decreased to 7.1; c/o dizziness/lightheadedness with ambulation --> transfuse PRBC x1 unit. BP low; though pt has hx of low BP at baseline. With anemia, BP meds held this am. Cont to monitor. Stop IVF as pt taking in oral well and hx of CHF/ischemic cardiomyopathy. Electrolytes are stable. 05/18/18 Hemoglobin remains low at 7.2 despite blood transfusion yesterday. She remains symptomatic with lightheadedness/dizziness. She has ischemic cardiomyopathy with a low EF -- well transfuse 1 more unit today. With her weight trending up, will also give Lasix 20 mg IV 1. Her potassium is stable at 4.2, and renal function is also stable. Blood pressure is about at baseline. This morning, but given her ongoing anemia , will hold her Coreg and lisinopril this morning to ensure blood pressure remains stable. Start Protonix for reflux symptom
[2018-05-18] MEDS: PANTOPRAZOLE 20 MG TABLET PO SCH (12:46)
[2018-05-18] MEDS ORDERED: BISACODYL 10 MG SUPPOSITORY RECTALLY SCH (20:00)
[2018-05-18] MEDS: SENNOSIDES 8.6 MG TABLET PO SCH (20:34)
[2018-05-19] MEDS: NOZIN NASAL SWAB NAS SCH ×3 (05:34→21:00)
[2018-05-19] MEDS: PANTOPRAZOLE 20 MG TABLET PO SCH (05:34)
[2018-05-19] MEDS: LEVOTHYROXINE 50 MCG TABLET PO SCH (05:34)
[2018-05-19] MEDS: ONDANSETRON 4 MG/2 ML INJECTION IVP PRN ×2 (05:47→22:27)
--- NOTE | 2018-05-19 08:55 | Orthopedic Progress Note ---
Date: Date: 05/19/18 Time: 850 Subjective/Severity of Illness: Nancy is sitting up in the chair this morning. She has been ambulating in the room only yesterday due to her anemia. She received 1 unit PRBC yesterday, hgb improved today 8.6 Denies any CP, SOA, nausea, epigastric pain resolved with PPI. Right hip pain has been well controlled with Roxicodone. Reports BMs, denies melena or hematochezia. Orthopedic Exam Vital signs: Temperature 97.1 F 05/17/18 03:47 Pulse Rate 82 05/17/18 08:04 Respiratory Rate 20 05/17/18 08:04 Blood Pressure 90/61 05/17/18 08:04 Pulse Oximetry 100 05/17/18 08:04 - Constitutional General Appearance: Present: alert, orientated x3, cooperative, no acute distress - Respiratory Exam Present: CTA bilaterally, non-labored - Cardiovascular Exam Present: Regular Rate/Rhythm, pedal pulses intact - Abdominal Exam Present: soft, normoactive BS x4 - Extremities Exam Present: no edema - Dressing Dressing: dry, intact, no drainage - Integumentary Exam Present: pink, warm, dry - Neurological Exam Present: intact to light touch, no deficits - Psychiatric Exam Present: alert, normal affect - Labs Result Diagrams: 05/19/18 04:15 05/19/18 04:15 Abnormal lab results 05/17/18 05/18/18 05/19/18 Range/Units 12:36 17:16 04:15 RBC 2.87 L (4.00-5.20) M/MM3 Hgb 8.8 L D 8.6 L (12-16) GM/DL Hct 26.7 L D (36-46) % Neut % (Auto) 70.2 H (33-66) % Lymph % (Auto) 14.3 L (23-45) % [place] % (Auto) 13.2 H (0-9.0) % Lymph # (Auto) 0.7 L (1-4.8) T/MM3 Anion Gap (5-15) meq/L Creatinine (0.7-1.2) mg/dL Calcium (8.4-10.2) MG/DL Crossmatch (AHG) See Detail 05/19/18 Range/Units 04:15 RBC (4.00-5.20) M/MM3 Hgb (12-16) GM/DL Hct (36-46) % Neut % (Auto) (33-66) % Lymph % (Auto) (23-45) % [place] % (Auto) (0-9.0) % Lymph # (Auto) (1-4.8) T/MM3 Anion Gap 4 L (5-15) meq/L Creatinine 0.6 L (0.7-1.2) mg/dL Calcium 8.3 L (8.4-10.2) MG/DL Crossmatch (AHG) H & H 05/16/18 05/17/18 05/17/18 Range/Units 16:18 04:06 17:48 Hgb 9.4 L 7.1 L D 9.0 L D (12-16) GM/DL Hct 21.7 L (36-46) % 05/18/18 05/18/18 05/19/18 Range/Units 05:09 17:16 04:15 Hgb 7.2 L D 8.8 L D 8.6 L (12-16) GM/DL Hct 22.6 L 26.7 L D (36-46) % Orthopedic Assessment and Plan (1) Post-traumatic osteonecrosis of right femur Status: Acute Assessment and Plan: Hospitalist managing medically Current anti-coagulation protocol with ASA 81mg BID for VTE prophylaxis. SCD's and mobilization for added coverage. PT/OT services to improve independent function. WBAT Discharge Planning per Case Management. Patient is anticipating discharge to SNU. - Anticoagulation Therapy Anticoagulation: ASA 81 mg PO BID x6 weeks Hospital Course Summary Disclaimer: The visit summary below is not to be considered part of the above Progress Note. Hospital Course: 05/17/18 Hgb decreased to 7.1; c/o dizziness/lightheadedness with ambulation --> transfuse PRBC x1 unit. BP low; though pt has hx of low BP at baseline. With anemia, BP meds held this am. Cont to monitor. Stop IVF as pt taking in oral well and hx of CHF/ischemic cardiomyopathy. Electrolytes are stable. 05/18/18 Hemoglobin remains low at 7.2 despite blood transfusion yesterday. She remains symptomatic with lightheadedness/dizziness. She has ischemic cardiomyopathy with a low EF -- well transfuse 1 more unit today. With her weight trending up, will also give Lasix 20 mg IV 1. Her potassium is stable at 4.2, and renal function is also stable. Blood pressure is about at baseline. This morning, but given her ongoing anemia , will hold her Coreg and lisinopril this morning to ensure blood pressure remains stable. Start Protonix for reflux symptom
[2018-05-19] MEDS: NAPROXEN 220 MG TABLET PO SCH ×2 (10:00→17:09)
[2018-05-19] MEDS: ASPIRIN *EC* 81 MG TABLET PO SCH ×2 (10:01→20:53)
[2018-05-19] MEDS: DOCUSATE SODIUM 100 MG CAPSULE PO SCH ×2 (10:01→20:53)
[2018-05-19] MEDS: ACETAMINOPHEN 325 MG TABLET PO SCH ×4 (10:01→20:57)
[2018-05-19] MEDS: DiphenhydrAMINE 25 MG CAPSULE PO SCH ×2 (10:02→20:53)
[2018-05-19] MEDS: Oxycodone *IR* 5 MG TABLET PO PRN ×4 (10:02→20:57)
[2018-05-19] MEDS: POLYETHYL GLYCOL 3350 17gm PACKET PO SCH (10:03)
[2018-05-19] MEDS: CARVEDILOL 3.125 MG TABLET PO SCH ×2 (10:03→17:10)
[2018-05-19] MEDS: LISINOPRIL 2.5 MG TABLET PO SCH (10:03)
--- NOTE | 2018-05-19 13:01 | Progress Note ---
- Date 05/19/18 Subjective: Up in chair. Feeling well today. Excited that her hemoglobin remained stable overnight. Anticipates discharge to SNU tomorrow. Objective Vital signs: Temperature 97.8 F 05/19/18 12:13 Pulse Rate 77 05/19/18 12:13 Respiratory Rate 16 05/19/18 12:13 Blood Pressure 97/61 05/19/18 12:13 Pulse Oximetry 98 05/19/18 12:13 Height/Weight/BMI: Height 5 ft 3.5 in Weight 53.3 kg Body Mass Index 19.0 - Constitutional Present: no acute distress - Routine Respiratory Exam Present: CTA bilaterally - Routine Cardiovascular Exam Present: RRR - Routine Abdominal Exam Present: soft, non distended, non tender - Routine Extremities Exam Present: no edema - Routine Skin Exam Present: intact, dry, warm - Routine Neurological Exam Present: alert, oriented X3, CN II-XII intact Results - Labs CBC & Chem 7: 05/19/18 04:15 05/19/18 04:15 Assessment and Plan (1) Postoperative anemia Current visit: Yes Status: Acute Assessment and Plan: Assessment Postop symptomatic anemia Hypotension Osteonecrosis of right femur, s/p removal of hardware and right total arthroplasty on 05/16/18 CAD Ischemic cardiomyopathy CHF, systolic, EF 25-35% 07/2017 Stage FANNIE oropharyngeal cancer extending to the base of the tongue (2015). Treated with cis-[place] and radiation therapy. Hypothyroid Dysphagia Osteoporosis Plan Hemoglobin stable overnight after another unit of PRBCs yesterday. She has ischemic cardiomyopathy with a low EF -- goal hemoglobin should be at least 8. Blood pressure improved today, it is baseline low. Tolerating low dose coreg and lisinopril. Started Protonix for reflux symptoms. Hopeful d/c to SNU tomorrow if hemoglobin stable. - Physician Narrative Narrative: Date: 05/19/18 Time: 1257 Hospital Course Summary Disclaimer: The visit summary below is not to be considered part of the above Progress Note. Hospital Course: 05/17/18 Hgb decreased to 7.1; c/o dizziness/lightheadedness with ambulation --> transfuse PRBC x1 unit. BP low; though pt has hx of low BP at baseline. With anemia, BP meds held this am. Cont to monitor. Stop IVF as pt taking in oral well and hx of CHF/ischemic cardiomyopathy. Electrolytes are stable. 05/18/18 Hemoglobin remains low at 7.2 despite blood transfusion yesterday. She remains symptomatic with lightheadedness/dizziness. She has ischemic cardiomyopathy with a low EF -- well transfuse 1 more unit today. With her weight trending up, will also give Lasix 20 mg IV 1. Her potassium is stable at 4.2, and renal function is also stable. Blood pressure is about at baseline. This morning, but given her ongoing anemia , will hold her Coreg and lisinopril this morning to ensure blood pressure remains stable. Start Protonix for reflux symptom 05/19/18 Hemoglobin stable overnight after another unit of PRBCs yesterday. She has ischemic cardiomyopathy with a low EF -- goal hemoglobin should be at least 8. Blood pressure improved today, it is baseline low. Tolerating low dose coreg and lisinopril. Started Protonix for reflux symptoms. Hopeful d/c to SNU tomorrow if hemoglobin stable.
[2018-05-19] MEDS ORDERED: ALTEPLASE (Cathflo*) 2mg INJECTION IV ONE (14:55)
[2018-05-19] MEDS: SENNOSIDES 8.6 MG TABLET PO SCH (20:53)
[2018-05-20] MEDS: LEVOTHYROXINE 50 MCG TABLET PO SCH (05:47)
[2018-05-20] MEDS: PANTOPRAZOLE 20 MG TABLET PO SCH (05:47)
[2018-05-20] MEDS: NOZIN NASAL SWAB NAS SCH (05:47)
[2018-05-20 07:46] VITALS: RESP 16
[2018-05-20] MEDS: DiphenhydrAMINE 25 MG CAPSULE PO SCH (08:32)
[2018-05-20] MEDS: ASPIRIN *EC* 81 MG TABLET PO SCH (08:32)
[2018-05-20] MEDS: ACETAMINOPHEN 325 MG TABLET PO SCH ×2 (08:32→12:06)
[2018-05-20] MEDS: DOCUSATE SODIUM 100 MG CAPSULE PO SCH (08:32)
[2018-05-20] MEDS: CARVEDILOL 3.125 MG TABLET PO SCH (08:32)
[2018-05-20] MEDS: NAPROXEN 220 MG TABLET PO SCH (08:32)
[2018-05-20] MEDS: LISINOPRIL 2.5 MG TABLET PO SCH (08:33)
[2018-05-20] MEDS: POLYETHYL GLYCOL 3350 17gm PACKET PO SCH (08:33)
--- NOTE | 2018-05-20 08:51 | Progress Note ---
- Date 05/20/18 Subjective: Betty is doing well today and denies any new concerns. She is hopeful to discharge to SNF today. She asked appropriate questions about her BP and why she 's on BP meds - she states that her BP has always been low. She denies weakness/ dizziness. No SOA or chest pain. She's been eating well. Objective Vital signs: Temperature 97.3 F 05/20/18 07:46 Pulse Rate 68 05/20/18 08:18 Respiratory Rate 16 05/20/18 07:46 Blood Pressure 118/68 05/20/18 08:18 Pulse Oximetry 95 05/20/18 07:52 Height/Weight/BMI: Height 1.61 m Weight 54.5 kg Body Mass Index 19.0 - Constitutional Present: no acute distress, well nourished, well developed - Routine HEENT Exam Head: Present: normocephalic Eye: Present: PERRL. Absent: conjunctival icterus, scleral injection - Routine Respiratory Exam Present: CTA bilaterally - Routine Cardiovascular Exam Present: RRR, S1, S2 - Routine Abdominal Exam Present: soft, normoactive bowel sounds, non distended, non tender - Routine Extremities Exam Present: no edema - Routine Skin Exam Present: intact, dry, warm - Routine Neurological Exam Present: alert, oriented X3, normal speech - Routine Psychiatric Exam Present: normal affect, normal thought process, cooperative Results - Labs CBC & Chem 7: 05/20/18 04:51 05/20/18 04:51 Assessment and Plan (1) Postoperative anemia Current visit: Yes Status: Acute Assessment and Plan: Assessment Postop symptomatic anemia Hypotension Osteonecrosis of right femur, s/p removal of hardware and right total arthroplasty on 05/16/18 CAD Ischemic cardiomyopathy CHF, systolic, EF 25-35% 07/2017 Stage FANNIE oropharyngeal cancer extending to the base of the tongue (2016). Treated with cis-[place] and radiation therapy. Hypothyroid Dysphagia Osteoporosis Plan Hemoglobin stable @ 8.4. Cont PPI. BP improved; cont carvedilol and lisinopril. Medically stable for dc. ASA for vte ppx. DVT Prophylaxis: other GI Prophylaxis: Protonix Resuscitation Status: Full Code - Physician Narrative Physician: Thaddeus Mast MD Narrative: Date: 05/20/18 Time: 1200 Have independently interviewed and examined pt. Chart reviewed. Case discussed with my DRY MAN. Care plan developed with my supervision; agree with above. Doing well this morning. Pain controlled; increases some with activities but still well managed. Eating well. No nausea. Did have some dyspeptic symptoms yesterday. Bowels moving. Breathing well. Feels like she is improving. Lungs: decreased, no distress CV: regular AB: soft nt/nd MSE: awake alert appropriate Plan: Medically stable for discharge to residential. Encourage continue pulmonary toilet - advised pt to continue IS use. Encourage therapy. Will need f /u with PCP in about 1 week and continued ortho follow up. Hospital Course Summary Disclaimer: The visit summary below is not to be considered part of the above Progress Note. Hospital Course: 05/17/18 Hgb decreased to 7.1; c/o dizziness/lightheadedness with ambulation --> transfuse PRBC x1 unit. BP low; though pt has hx of low BP at baseline. With anemia, BP meds held this am. Cont to monitor. Stop IVF as pt taking in oral well and hx of CHF/ischemic cardiomyopathy. Electrolytes are stable. 05/18/18 Hemoglobin remains low at 7.2 despite blood transfusion yesterday. She remains symptomatic with lightheadedness/dizziness. She has ischemic cardiomyopathy with a low EF -- well transfuse 1 more unit today. With her weight trending up, will also give Lasix 20 mg IV 1. Her potassium is stable at 4.2, and renal function is also stable. Blood pressure is about at baseline. This morning, but given her ongoing anemia , will hold her Coreg and lisinopril this morning to ensure blood pressure remains stable. Start Protonix for reflux symptom 05/19/18 Hemoglobin stable overnight after another unit of PRBCs yesterday. She has ischemic cardiomyopathy with a low EF -- goal hemoglobin should be at least 8. Blood pressure improved today, it is baseline low. Tolerating low dose coreg and lisinopril. Started Protonix for reflux symptoms. Hopeful d/c to SNU tomorrow if hemoglobin stable. 05/20/18 Hemoglobin stable @ 8.4. Cont PPI. BP improved; cont carvedilol and lisinopril. ASA for vte ppx.
--- NOTE | 2018-05-20 09:26 | Extended Care Facility Orders ---
Admission Orders Admit to:: ICF Allergies/Adverse Reactions: Allergies No Known Allergies Allergy (Verified 05/16/18 10:07) Admitting Diagnosis: Right MEGHAN with hardware removal Admitting Physician: Luis Fernando Gupta MD Attending Physician: Luis Fernando Gupta MD Code Status: Full Code Anticiapted Length of Stay: 30 days or less Rehab Potential: good Rehab Prognosis: good Diet: 05/16/18 Dinner Regular Diet [DIET] Diet Modifications: Wound/Incision Care: Keep the wound clean and dry. May use Facility Protocol or Standing Orders: Yes May have flu vaccine: Yes Evaluations/Treatment: PT (WBAT, Work with therapeutic exercises and ambulation.), OT Senior Care Certification: I certify that SNF services are required to be given on an Inpatient basis because of the patients need for [facility] care on a continuing basis for the condition(s) for which he/she received inpatient hospital services prior to his/her transfer to the SNF. SNF inpatient care is necessary for the following reasons Indication for Senior Care: Postop Assessment Care - Additional Information In Event of Arrest: Start CPR,call 911,send patient to the ER Resident is Aware of Diagnosis: Yes Laboratory/Radiology: CBC and BMP on 05/22/18. Referrals: López Catherine MD [Physician] - 05/23/18 10:00 am Additional Orders: Check a CBC & BMP on 05/22/18. Use I.S. every 2-3 hrs while awake.
--- NOTE | 2018-05-20 09:35 | Discharge Summary ---
Orthopedic Discharge Info Date of admission: 05/16/18 09:31 Primary care physician: Fabienne Ta APRN Attending Physician: Luis Fernando Gupta MD Consults: 05/16/18 09:44 Consult to Anesthesiology [CONS] Routine Reason For Exam: Preoperative Assessment 05/16/18 18:26 Case Management Consult [CONS] Routine Reason For Exam: Discharge Planning DME-Walker [CONS] Routine Height: 5 ft 3.5 in Weight: 49.4 kg Total Joint Outpatient Therapy [CONS] Routine Comment: Remove dressing in 2 weeks 05/17/18 10:34 Physician [Physician Consult] [CONS] Routine Consulting Provider: Thaddeus Mast Reason For Exam: Medical mgmt Ordering Provider has Notified Roller Skater: Yes - Discharge Diagnosis (1) Post-traumatic osteonecrosis of right femur Status: Acute - Procedures Procedures: Removal of hardware and conversion to a Right MEGHAN 05/16/18. - Laboratory Result Diagrams: 05/20/18 04:51 05/20/18 04:51 Laboratory: Abnormal lab results 05/20/18 05/20/18 Range/Units 04:51 04:51 RBC 2.75 L (4.00-5.20) M/MM3 Hgb 8.4 L (12-16) GM/DL Hct 25.7 L (36-46) % MPV 8.8 L (9.4-12.4) UM3 Creatinine 0.6 L (0.7-1.2) mg/dL Calcium 8.2 L (8.4-10.2) MG/DL H & H 05/16/18 05/17/18 05/17/18 Range/Units 16:18 04:06 17:48 Hgb 9.4 L 7.1 L D 9.0 L D (12-16) GM/DL Hct 21.7 L (36-46) % 05/18/18 05/18/18 05/19/18 Range/Units 05:09 17:16 04:15 Hgb 7.2 L D 8.8 L D 8.6 L (12-16) GM/DL Hct 22.6 L 26.7 L D (36-46) % 05/20/18 Range/Units 04:51 Hgb 8.4 L (12-16) GM/DL Hct 25.7 L (36-46) % Orthopedic Discharge HPI - HPI Comments She was admitted on 05/16/18 for removal of hardware to right proximal femur and right total hip arthroplasty. See the H&P for more details. Orthopedic Hospital Course Hospital course: 05/20/18 09:30 After appropriate preoperative clearance and signing of operative consent, the patient was given IV antibiotics, according to orthopedic protocol. The patient was taken to the operating room and underwent removal of hardware from the right hip and conversion to a right MEGHAN on 05/16/18. Following surgery, antibiotics were discontinued less than 24 hours according to joint protocol. Aspirin was initiated and SCDs added for DVT prevention. The dressing was clean, dry, and intact. Pain control was obtained via multimodal approach. Bowel motivation addressed with scheduled and PRN medications. Early mobilization was initiated through PT services. Discharge arrangements made by a collaborative effort between the patient and Case Management. Pts hgb dropped from 9.4 to 7.1 the morning after surgery. She received a total of 2 units PRBCs during this hospitalization and hgb was stable at 8.4 on discharge. She was hypotensive. BPs meds were held but she is back on carvedilol and Lisinopril at discharge. Pt is going to [place] for continued rehab. She is to see her PCP on 05/23 for f/u on her anemia and many chronic medical conditions. Lab is scheduled to be drawn 05/22/18 before her f/u appt with her PCP. Follow-up is scheduled in 2-3 weeks. Discharge instructions given by orthopedic providers and nursing staff at discharge. Discharge condition was good. Care extended to > 2 midnight stays?: Yes Comments: Postop symptomatic anemia requiring transfusion of 2u PRBCs. Hypotension CAD Ischemic cardiomyopathy CHF, systolic, EF 25-35% 07/2017 Stage IV oropharyngeal cancer extending to the base of the tongue (2016). Treated with cis-[place] and radiation therapy. Hypothyroid Dysphagia Osteoporosis Discharge Plan - Med Rec/Dispo Referrals/Follow Up: López Catherine MD [Physician] - 05/23/18 10:00 am [place] Instructions: [facility] Postop Instructions Prescriptions: New Pantoprazole Sodium [Protonix] 20 mg PO ACB tablet.dr BURNETTE 3350 17gm PACKET [Miralax] 17 gm PO DAILY packet Hydrocodone/APAP 7.5/325 [[place] 7.5/325] 1 - 2 tab PO Q6HR PRN #60 tab PRN Reason: Pain Ibuprofen [Ibuprofen Ib] 2 tab PO Q6H PRN #40 tab PRN Reason: Pain Aspirin *EC* [Ecotrin] 81 mg PO BID tab Docusate Sodium [Colace] 100 mg PO BID capsule Continue Risedronate Sodium 35 mg PO 1 WEEK Glucosamine HCl 1,500 mg PO DAILY Zestril (lisinopril) 2.5 mg tablet 2.5 mg PO DAILY Coreg (carvedilol) 3.125 mg tablet 3.125 mg PO BID calcium carbonate 500 mg (1,250 mg)-vitamin D3 200 unit tablet 1 tab PO BID multivitamin-ferrous fumarate-folic acid 18 mg-400 mcg tablet 1 tab PO DAILY Aler-Cap (Diphenhydramine) 25 mg capsule 25 mg PO BID cap levothyroxine (Tirosint) 50 mcg capsule 50 mcg PO DAILY #90 cap Discontinued Aspirin [Aspirin EC] 81 mg PO DAILY Acetaminophen [Tylenol] 1,000 mg PO BID Hydrocodone/APAP 5/325 [[place] 5/325] 1 tab PO BID - Disposition 04 To [facility] Home/Facility - Dismissal Complete Discharge Instructions are:: Complete
--- NOTE | 2018-05-20 09:55 | Orthopedic Progress Note ---
Date: Date: 05/20/18 Time: 951 Subjective/Severity of Illness: Doing well. Pain is a 3-4 range. Bowels have moved. No lightheadedness or dizziness. No CP or breathing problems. She is going to [place] today. Orthopedic Exam Vital signs: Temperature 97.1 F 05/17/18 03:47 Pulse Rate 82 05/17/18 08:04 Respiratory Rate 20 05/17/18 08:04 Blood Pressure 90/61 05/17/18 08:04 Pulse Oximetry 100 05/17/18 08:04 - Constitutional General Appearance: Present: alert, cooperative, no acute distress - Respiratory Exam Present: non-labored - Extremities Exam Present: no edema, pulses intact - Dressing Dressing: dry, intact, no drainage - Integumentary Exam Present: pink, warm, dry - Neurological Exam Present: intact to light touch, no deficits - Psychiatric Exam Present: alert, normal affect - Labs Result Diagrams: 05/20/18 04:51 05/20/18 04:51 Abnormal lab results 05/20/18 05/20/18 Range/Units 04:51 04:51 RBC 2.75 L (4.00-5.20) M/MM3 Hgb 8.4 L (12-16) GM/DL Hct 25.7 L (36-46) % MPV 8.8 L (9.4-12.4) UM3 Creatinine 0.6 L (0.7-1.2) mg/dL Calcium 8.2 L (8.4-10.2) MG/DL H & H 05/16/18 05/17/18 05/17/18 Range/Units 16:18 04:06 17:48 Hgb 9.4 L 7.1 L D 9.0 L D (12-16) GM/DL Hct 21.7 L (36-46) % 05/18/18 05/18/18 05/19/18 Range/Units 05:09 17:16 04:15 Hgb 7.2 L D 8.8 L D 8.6 L (12-16) GM/DL Hct 22.6 L 26.7 L D (36-46) % 05/20/18 Range/Units 04:51 Hgb 8.4 L (12-16) GM/DL Hct 25.7 L (36-46) % Orthopedic Assessment and Plan (1) Post-traumatic osteonecrosis of right femur Status: Acute Assessment and Plan: Hospitalist managing medically and feel she is safe for discharge. Current anti-coagulation protocol with ASA 81mg BID x 6 weeks for VTE prophylaxis. SCD's and mobilization for added coverage. PT/OT services to improve independent function. WBAT Discharge Planning per Case Management. Patient is anticipating discharge to SNU in [place]. - Anticoagulation Therapy Anticoagulation: ASA 81 mg PO BID x6 weeks Hospital Course Summary Disclaimer: The visit summary below is not to be considered part of the above Progress Note. Hospital Course: 05/17/18 Hgb decreased to 7.1; c/o dizziness/lightheadedness with ambulation --> transfuse PRBC x1 unit. BP low; though pt has hx of low BP at baseline. With anemia, BP meds held this am. Cont to monitor. Stop IVF as pt taking in oral well and hx of CHF/ischemic cardiomyopathy. Electrolytes are stable. 05/18/18 Hemoglobin remains low at 7.2 despite blood transfusion yesterday. She remains symptomatic with lightheadedness/dizziness. She has ischemic cardiomyopathy with a low EF -- well transfuse 1 more unit today. With her weight trending up, will also give Lasix 20 mg IV 1. Her potassium is stable at 4.2, and renal function is also stable. Blood pressure is about at baseline. This morning, but given her ongoing anemia , will hold her Coreg and lisinopril this morning to ensure blood pressure remains stable. Start Protonix for reflux symptom 05/19/18 Hemoglobin stable overnight after another unit of PRBCs yesterday. She has ischemic cardiomyopathy with a low EF -- goal hemoglobin should be at least 8. Blood pressure improved today, it is baseline low. Tolerating low dose coreg and lisinopril. Started Protonix for reflux symptoms. Hopeful d/c to SNU tomorrow if hemoglobin stable. 05/20/18 Hemoglobin stable @ 8.4. Cont PPI. BP improved; cont carvedilol and lisinopril. ASA for vte ppx.
[2018-05-20 12:09] VITALS: BP 96/69; PULSE 67; TEMP 97.4; O2SAT 96
== END 2018-05-20 14:51 | DRG 470 ==
LOC: NMC.PERIOP 09:31 → SRG 17:18
PROVIDERS: ADMIT Orthopaedic Surgery; ATTEND Orthopaedic Surgery